=== PATIENT | female | born 1930 | race Caucasian/White ===

== ENCOUNTER → 2019-10-04 10:35 | Outpatient (CLI) | payer MEDICARE | END | disposition home or self-care (01) | LOC: D.RAD 10:00 | PROVIDERS: ATTEND Internal Medicine Gastroenterology | DX: R14.2 Eructation (principal) ==

== ENCOUNTER 2019-10-09 11:28 | Inpatient (IN) | payer MEDICARE ==
[~2019-10-09] VITALS: Ht 147.3 cm; Wt 53.6 kg
[2019-10-09] VITALS (9 sets, daily range): BP systolic 90–138; BP diastolic 44–69; BMI 25.9; BMI 26.3
[2019-10-09 12:15] LABS: ANION GAP 9.9 mmol/L (8-16); CALCIUM 8.9 mg/dL (8.5-10.1); CARBON DIOXIDE 28.9 mmol/L (21.0-32.0); POTASSIUM - SERUM 3.8 mmol/L (3.5-5.1)
[2019-10-09] MEDS ORDERED: CARAFATE1 G PO (12:19)
[2019-10-09] MEDS ORDERED: CIMETIDINE200 MG PO (12:19)
[2019-10-09] MEDS ORDERED: OMEPRAZOLE20 M1 (12:19)
[2019-10-09] MEDS ORDERED: COZAAR25 MG PO (12:20)
[2019-10-09 12:25] LABS: HEMATOCRIT 29.1 % (36.0-48.0); HEMOGLOBIN 9.9 g/dL (12-16); LYMPHOCYTES 23.4 % (15-50); MCH 27.6 pg (26.0-34.0); MCV 81.1 fL (80.0-100.0); MEAN PLATELET VOLUME 8.9 fL (7.4-10.4); PLATELET COUNT 359 10x3/uL (130-400); RBC 3.59 10x6/uL (4.00-5.40); RDW 12.8 % (11.5-14.5); WBC 7.3 10x3/uL (4.8-10.8)
--- NOTE | 2019-10-09 19:00 | NUR ---
REPORT RECEIEVED. PT SEDATED ON VENT, NO ACUTE DISTRESS NOTED. ASSESSMENT COMPLETED, SEE FLOWSHEET. RT HAND PIV INFUSING, SEE IV FLOWSHEET. WILL CONTINUE TO MONITOR.
--- NOTE | 2019-10-09 19:00 | NUR ---
1700 PT RECIEVED FROM GI LAB WITH ANESTHESIA AND GI LAB STAFF.. PT IS ORALLY INTUBATED AND SEDATED WITH DIPRIVAN.. SHE IS PLACED ON VENT ON ARRIVAL.. NGT PLACED ON ARRIVAL AND IMMIDIATE RETURN OF COPIOUS AMOUNTS OF STOMACH CONTENTS RETURNED WHEN PLACED TO SUCTION.. PIV INTO HER RIGHT HAND AND NS INFUSING WITH DIPRIVAN.. PT IS VERY EASILY STIMULATED.. 1800 MORE CALM AT THIS TIME REMAINS ON VENT ABGS DONE WITH VENT CHANGES MADE BY RT
[2019-10-10] VITALS (23 sets, daily range): BP systolic 90–128; BP diastolic 40–78; Ht 147.3 cm; Wt 53.6 kg
[2019-10-10 04:01] LABS: BASOPHILS 0.2 % (0-2); EOSINOPHILS 0.2 % (0-7); HEMATOCRIT 28.3 % (36.0-48.0); HEMOGLOBIN 9.5 g/dL (12-16); IMMATURE GRANULOCYTES 0.3 % (0-5); LYMPHOCYTES 11.4 % (15-50); MCH 27.8 pg (26.0-34.0); MCHC 33.6 g/dL (31.0-37.0); MCV 82.7 fL (80.0-100.0); MEAN PLATELET VOLUME 9.8 fL (7.4-10.4); MONOCYTES 8.1 % (2-11); NEUTROPHILS 79.8 % (40-80); RBC 3.42 10x6/uL (4.00-5.40); RDW 12.8 % (11.5-14.5)
[2019-10-10 04:22] LABS: PLATELET COUNT 271 10x3/uL (130-400); WBC 12.9 10x3/uL (4.8-10.8)
[2019-10-10 04:33] LABS: ALBUMIN 3.3 g/dL (3.4-5.0); ANION GAP 8.9 mmol/L (8-16); BILIRUBIN - TOTAL 0.3 mg/dL (0.2-1.3); CALCIUM 8.1 mg/dL (8.5-10.1); CARBON DIOXIDE 26.3 mmol/L (21.0-32.0); MAGNESIUM - SERUM 1.5 mg/dL (1.8-2.4); PHOSPHOROUS 4.3 mg/dL (2.5-4.9); PROTEIN - SERUM 6.1 g/dL (6.4-8.2)
[2019-10-10 04:41] LABS: POTASSIUM - SERUM 3.2 mmol/L (3.5-5.1)
[2019-10-10 04:51] LABS: % SATURATION 7 % (15-55); IRON 22 ug/dl (35-150); TOTAL IRON BIND CAPACITY 288 ug/dl (260-445); UNSAT IRON BIND CAPACITY 266 ug/dl (150-375)
--- NOTE | 2019-10-10 07:16 | NUR ---
2100 - PT SEDATED ON VENT. 2300 - REASSESSMENT COMPLETED, SEE FLOWSHEET. 0100 - REPOSITIONED FOR COMFORT. 0300 - REASSESSMENT COMPLETED. 0500 - PT REPOSITIONED FOR COMFORT. WILL CONTINUE TO MONITOR.
--- NOTE | 2019-10-10 07:20 | NUR ---
REPORT RECIEVED, SHIFT ASSESSMENT COMPLETE, PT IS SEDATED ON VENT, ON 30% FIO2 WITH 98% O2 SAT. ALL PPP, VSS, WILL CON'T TO MONITOR
--- NOTE | 2019-10-10 09:30 | NUR ---
PT TO CT AT THIS TIME, VIA BED, FAMILY AT BEDSIDE,
--- NOTE | 2019-10-10 11:30 | NUR ---
REASSESSMENT COMPLETE, NO CHANGES NOTED, PT RESTING AT THIS TIME, VSS, CALL LIGHT IN REACH
--- NOTE | 2019-10-10 13:15 | NUR ---
FAMILY AT BEDSIDE, UPDATE GIVEN
--- NOTE | 2019-10-10 14:30 | NUR ---
DR. CONCEPCION MET WITH FAMILY AT THIS TIME, SPOKE AT LENGTH ABOUT PT POC, ALL QUESTIONS ANSWERED, NO OTHER NEEDS NOTED
--- NOTE | 2019-10-10 15:20 | NUR ---
REASSESSMENT COMPLETE, NO CHANGES NOTED, PT RESTING AT THIS TIME, VSS, WILL CON'T TO MONITOR
[2019-10-11] VITALS (18 sets, daily range): BP systolic 104–146; BP diastolic 44–86
[2019-10-11 03:56] LABS: HEMATOCRIT 26.4 % (36.0-48.0); LYMPHOCYTES 14.6 % (15-50); MCHC 34.1 g/dL (31.0-37.0); MEAN PLATELET VOLUME 9.5 fL (7.4-10.4); NEUTROPHILS 76.9 % (40-80); PLATELET COUNT 301 10x3/uL (130-400); RBC 3.22 10x6/uL (4.00-5.40); RDW 13.4 % (11.5-14.5)
[2019-10-11 04:00] LABS: ANION GAP 10.1 mmol/L (8-16); CALCIUM 7.5 mg/dL (8.5-10.1); CARBON DIOXIDE 23.6 mmol/L (21.0-32.0); WBC 9.4 10x3/uL (4.8-10.8)
[2019-10-11 04:02] LABS: POTASSIUM - SERUM 3.7 mmol/L (3.5-5.1)
--- NOTE | 2019-10-11 09:03 | NUR ---
SEDATION OFF FOR CPAP TRIAL PER ORDER
--- NOTE | 2019-10-11 19:00 | NUR ---
ASSESSMENT COMPLETED. SEE FLOWSHEETS FOR ALL FINDINGS. PT A/O X3, FOLLOWS COMMANDS, ANSWERED QUESTIONS APPROP. SR ON CM WITH HR AT 79BPM, LUNGS CLEAR TO ULB, DIMINISHED TO LLB, UNLABORED ON 4L VIA NC. RT NARE NGT TO LIWS, IN PLACE, POSITIONED VERIFIED BY 10CC AIR BOLUS, [id number] H2O2, WITHOUT DIFFIC. ABD BOWEL SOUNDS HYPOACTIVE X4 QUADR. PPP. CALL LIGHT IN REACH. CONT TO MONITOR.
--- NOTE | 2019-10-11 21:00 | NUR ---
REPOSTIONED FOR COMFORT. PILLOWS IN USE FOR SUPPORT. VSS. NO VISITORS AT THIS TIME. CPOC.
--- NOTE | 2019-10-11 23:00 | NUR ---
REASSESSMENT COMPLETED. SEE FLOWSHEETS FOR ALL FINDINGS. NO SIGNS OF DISTRESS AT THIS TIME. VSS. CPOC.
[2019-10-12] VITALS (23 sets, daily range): BP systolic 101–157; BP diastolic 48–95
--- NOTE | 2019-10-12 01:00 | NUR ---
PT RESTING QUIETLY WITHOUT DISTRESS. VSS. NO NEEDS VOICES AT THIS TIME. CPOC.
--- NOTE | 2019-10-12 03:00 | NUR ---
REASSESSMENT COMPLETED. SEE FLOWSHEETS FOR ALL FINDINGS. NO ACUTE CHANGES NOTED. VSS. CPOC.
--- NOTE | 2019-10-12 04:24 | NUR ---
I&O COMPLETED TO CHART.
--- NOTE | 2019-10-12 05:00 | NUR ---
PT REPOSITIONED FOR COMFORT. PILLOWS IN USE FOR SUPPORT. HOB UP. SIDE RAILS UP. CALL LIGHT IN REACH. CPOC.
--- NOTE | 2019-10-12 07:00 | NUR ---
REC'D REPORT AND RESUMED CARE, SITTING UP IN BED AO, VSS, NGT TO RIGHT NARE, GREEN DRAINAGE TO CANISTER, PIV TO RIGHT FA WITH RAMÓN, NS INFUSING, FOELY TO GRAVITY WITH YELOOW DRAINAGE TO BAG, ASSESSMENT COMPLETED PER FLOWSHEET, CALL LIGHT IN REACH, NO NEEDS AT THIS TIME
--- NOTE | 2019-10-12 08:00 | NUR ---
FAMILY AT BEDSIDE, STATUS UPDATED, AWAITNG CONFERENCE WITH DR. CONCEPCION RE: POSSIBLE SURGERY, NO OTHER NEEDS AT THIS TIME
--- NOTE | 2019-10-12 09:00 | NUR ---
MORNING MEDS GIVEN PER MAR FLOWSHEET, TOLERATED WITH DIFFICULTY
--- NOTE | 2019-10-12 10:12 | NUR ---
Nutrition follow-up: Pt extubed 10/[address] NPO Labs reviewed WT: 126# Recommend ST eval and diet advanced as soon as mecically feasible. It unable to tolerate po intake, recommmend starting TF via NGT. Osmolite 1.0 leeanna @ goal rate of 50 ml/hr. RDN following.
--- NOTE | 2019-10-12 11:00 | NUR ---
ASSESSMENT COMPLETED, NO ACUTE CHANGE FROM PREVIOUS
--- NOTE | 2019-10-12 12:30 | NUR ---
FDR BREVING HERE FOR EVAL AND DISCUSSION WITH FAMILY RE: POSSIBLE SURGERY, ECISION MADE BY PATIENT TO GO WITH SURGERY AT THIS TIME
--- NOTE | 2019-10-12 15:00 | NUR ---
SLEEPING WITH NO SIGNS OF DISTRESS, VSS, WILL COPNTINUE TO MONITOR
--- NOTE | 2019-10-12 16:24 | HP ---
PATIENT: HONORIO ACEVES MEDICAL RECORD: [id number] ACCOUNT: [id number] LOCATION:[facility] D.2307 : 34 ADMISSION DATE: 10/09/19 PCP: KATERINA HO MD HISTORY AND PHYSICAL EXAMINATION CHIEF COMPLAINT: Clogged stent. HISTORY OF PRESENT ILLNESS: The patient has a duodenal stent in place. She has undergone upper GI and it appears that her stent is almost completely clogged duct. We are going to go in and see if we can unclog the stent. We have never been able to determine what is the etiology of the duodenal stenosis, whether it is due to peptic ulcer disease or due to a polyp, or whether it is due to malignancy. However, we will accept the fact that an operation on her to determine the reason for the duodenal stenosis is something we do not want to do because she likely would not do well with it. HOME MEDICATIONS: Please see the nursing list. ALLERGIES: SULFA AND PREDNISONE. PAST MEDICAL AND SURGICAL HISTORY: Hypertension, gastroesophageal reflux, history of duodenal stenosis. REVIEW OF SYSTEMS: Negative for angina or myocardial infarction, CVA or seizures. PHYSICAL EXAMINATION: GENERAL: The patient does not appear acutely ill. She does not appear chronically ill. VITAL SIGNS: Reviewed. EARS: The patient is very hard of hearing. CARDIOVASCULAR: Regular rhythm. PULMONARY: Nonlabored. EYES: Extraocular movements are intact. IMPRESSION: Clogged duodenal stent. PLAN: Plan will be EGD with an attempt to recanalize the duodenal stent. TRANSINT:[id number] Voice Confirmation ID: [id number] DOCUMENT ID: [id number] HANNAH CONCEPCION MD at 1624 CC: [id number] DICTATION DATE: 10/09/19 1600 SIEBEL ARCHITECT: 10/09/19 192 ADM IN [facility] [address] [place] [address]
--- NOTE | 2019-10-12 18:00 | NUR ---
PROCAL INITITATED AND INFUSING AT 50 CC/HR
--- NOTE | 2019-10-12 21:10 | NUR ---
NO VISITORS PRESENT AT THIS TIME, VSS, WILL MONITOR.
[2019-10-13] VITALS (24 sets, daily range): BP systolic 97–168; BP diastolic 51–99
--- NOTE | 2019-10-13 10:12 | NUR ---
PTS DAUGHTER AT BEDSIDE AT THIS TIME, UPDATES PROVIDED. VSS. NO ACUTE DISTRESS NOTED. WILL CONTINUE PLAN OF CARE.
--- NOTE | 2019-10-13 10:26 | NUR ---
DR MEHTA IN PTS ROOM SPEAKING WITH PT AND PTS DAUGHTER. VSS. NO ACUTE DISTRESS NOTED. WILL CONTINUE PLAN OF CARE.
--- NOTE | 2019-10-13 12:55 | NUR ---
UP IN BED AWAKE AT THIS TIME. VSS. NO ACUTE DISTRESS NOTED. PT INDEPENDENT IN BED, AND STATES SHE IS COMFORTABLE. WILL CONTINUE PLAN OF CARE.
--- NOTE | 2019-10-13 14:14 | NUR ---
NO CHANGE. VSS. NO ACUTE DISTRESS NOTED. WILL CONTINUE PLAN OF CARE.
[2019-10-13 16:14] LABS: BASOPHILS 0.5 % (0-2); EOSINOPHILS 1.9 % (0-7); HEMATOCRIT 27.7 % (36.0-48.0); IMMATURE GRANULOCYTES 0.3 % (0-5); LYMPHOCYTES 21.7 % (15-50); MCH 27.2 pg (26.0-34.0); MCHC 32.5 g/dL (31.0-37.0); MCV 83.7 fL (80.0-100.0); MEAN PLATELET VOLUME 8.9 fL (7.4-10.4); MONOCYTES 10.1 % (2-11); NEUTROPHILS 65.5 % (40-80); PLATELET COUNT 333 10x3/uL (130-400); RBC 3.31 10x6/uL (4.00-5.40); RDW 13.7 % (11.5-14.5)
[2019-10-13 16:21] LABS: ALBUMIN 2.8 g/dL (3.4-5.0); ANION GAP 10.4 mmol/L (8-16); BILIRUBIN - TOTAL 0.29 mg/dL (0.2-1.3); CALCIUM 8.6 mg/dL (8.5-10.1); CARBON DIOXIDE 24.8 mmol/L (21.0-32.0); CREATININE - SERUM 0.8 mg/dL (0.6-1.3); POTASSIUM - SERUM 3.2 mmol/L (3.5-5.1); PROTEIN - SERUM 6.3 g/dL (6.4-8.2)
--- NOTE | 2019-10-13 16:50 | NUR ---
POTASSIUM LEVEL IS 3.2, REPLACED PER PROTOCOL.
--- NOTE | 2019-10-13 18:36 | NUR ---
UP IN BED AWAKE AT THIS TIME. DEINES ANY NEEDS. VSS. WILL CONTINUE PLAN OF CARE.
--- NOTE | 2019-10-13 19:15 | NUR ---
RESUMED CARE OF PT, ASSISTED PT TO REPOSITION IN BED, VSS, BED LOW, CALL LIGHT AND PERSONAL ITEMS IN REACH.
--- NOTE | 2019-10-13 21:30 | NUR ---
NO VISITORS PRESENT AT THIS TIME, PT REFUSES CHG BATH AT THIS TIME, STATES SHE WOULD PREFER TO WAIT FOR TOMORROW FOR SURGERY.
--- NOTE | 2019-10-13 23:15 | NUR ---
REASSESSMENT PER FLOWSHEET, NO ACUTE CHANGES NOTED. VSS
[2019-10-14] VITALS (24 sets, daily range): BP systolic 107–155; BP diastolic 47–87
--- NOTE | 2019-10-14 03:15 | NUR ---
REASSESSMENT PER FLOWSHEET, HR SR ON CM, CONT POC.
[2019-10-14 04:00] LABS: BASOPHILS 0.5 % (0-2); EOSINOPHILS 2.3 % (0-7); HEMATOCRIT 26.9 % (36.0-48.0); HEMOGLOBIN 8.6 g/dL (12-16); IMMATURE GRANULOCYTES 0.3 % (0-5); LYMPHOCYTES 20.9 % (15-50); MCH 26.6 pg (26.0-34.0); MCV 83.3 fL (80.0-100.0); MEAN PLATELET VOLUME 8.8 fL (7.4-10.4); PLATELET COUNT 322 10x3/uL (130-400); RBC 3.23 10x6/uL (4.00-5.40); RDW 13.5 % (11.5-14.5)
[2019-10-14 04:06] LABS: CALC OSMOLALITY 271 mosm/kg (275-300); CALCIUM 8.5 mg/dL (8.5-10.1); CARBON DIOXIDE 24.8 mmol/L (21.0-32.0); CHLORIDE - SERUM 103 mmol/L (98-107); CREATININE - SERUM 0.7 mg/dL (0.6-1.3); GLUCOSE 112 mg/dL (74-106); MAGNESIUM - SERUM 1.6 mg/dL (1.8-2.4); PHOSPHOROUS 2.5 mg/dL (2.5-4.9); SODIUM 135 mmol/L (136-145); UREA NITROGEN 14 mg/dL (7-18); eGFR NON AFRICAN AMERICAN 84 mL/min (90-120)
--- NOTE | 2019-10-14 05:47 | NUR ---
PT RESTING IN BED WITH EYES CLOSED, VSS, CONT POC.
--- NOTE | 2019-10-14 08:53 | NUR ---
UP IN BED AT THIS TIME AWAKE AND TALKING TO DR MEHTA. VSS. NO ACUTE DISTRESS NOTED. CALL LIGHT IN REACH. ALERT AND ORIENTED. ASSISTED WITH REPOSITIONING Q2H WELL PT REPOSITIONS SELF FREQUENTLY. WILL CONTINUE PLAN OF CARE.
--- NOTE | 2019-10-14 12:26 | NUR ---
1120: NOTED PTS NGT TAPE HAD COME LOOSE AND WAS NO LONGER ADHERED TO PTS NGT. PLACEMENT AUSCULTATED TO VERIFY AND NEW SECURITY TAPE WAS PLACED. 1210: PTS DAUGHTER WAS IN ROOM VISING WITH PT AND NOTIFIED NURSE THAT SHE WAS NOW STARTING TO SEE SMALL AMOUNT OF BLOOD TINGED DRAINAGE IN NGT TUBING WHICH IS SET TO LOW INTERMITENT SUCTIONING. AT THIS TIME PLACEMENT ASSESSED VIA AUSCULTATION AND NOTED IT WAS NO LONGER IN PLACE. NGT ADVANCED 1 INCH AND THEN AUSCULTATION PERFORMED AGAIN AND WAS NOTED NOW IN PLACE. DR MEHTA PAGED AND NOTIFIED OF THIS. KUB ORDER RECIEVED FOR PLACEMENT VERIFICATION. TAPE IN PLACE FOR NGT SECURITY. VSS. WILL CONTINUE PLAN OF CARE.
--- NOTE | 2019-10-14 14:41 | NUR ---
UP IN BED TALKING ON PHONE AT THIS TIME. VSS. NO ACUTE DISTRESS NOTED. CALL LIGHT AND PERSONAL ITEMS IN REACH. WILL CONTINUE PLAN OF CARE.
--- NOTE | 2019-10-14 16:48 | NUR ---
AWAKE IN BED WATCHING TV AT THIS TIME. VSS. NO ACUTE DISTRESS NOTED. WILL CONTINUE PLAN OF CARE.
--- NOTE | 2019-10-14 17:49 | NUR ---
NO ACUTE DISTRESS NOTED. NO CHANGE. VSS. CALL LIGHT AND PERSONAL ITEMS IN REACH. WILL CONTINUE PLAN OF CARE.
--- NOTE | 2019-10-14 19:15 | NUR ---
RESUMED CARE OF PT, ASSESSMENT PER FLOWSHEET.
[2019-10-15] VITALS (24 sets, daily range): BP systolic 84–157; BP diastolic 52–93
--- NOTE | 2019-10-15 01:04 | NUR ---
PT RESTING IN BED WITH EYES CLOSED, HR SR ON CM, VSS.
[2019-10-15 04:26] LABS: BASOPHILS 0.5 % (0-2); EOSINOPHILS 3.2 % (0-7); HEMATOCRIT 29.9 % (36.0-48.0); HEMOGLOBIN 9.8 g/dL (12-16); IMMATURE GRANULOCYTES 0.2 % (0-5); LYMPHOCYTES 26.8 % (15-50); MCH 27.1 pg (26.0-34.0); MCHC 32.8 g/dL (31.0-37.0); MCV 82.8 fL (80.0-100.0); MEAN PLATELET VOLUME 8.7 fL (7.4-10.4); MONOCYTES 10.4 % (2-11); NEUTROPHILS 58.9 % (40-80); PLATELET COUNT 326 10x3/uL (130-400); RBC 3.61 10x6/uL (4.00-5.40); RDW 13.2 % (11.5-14.5); WBC 8.1 10x3/uL (4.8-10.8)
[2019-10-15 05:00] LABS: ALBUMIN 2.8 g/dL (3.4-5.0); ANION GAP 12.4 mmol/L (8-16); BILIRUBIN - TOTAL 0.34 mg/dL (0.2-1.3); CARBON DIOXIDE 26.4 mmol/L (21.0-32.0); CREATININE - SERUM 0.8 mg/dL (0.6-1.3); MAGNESIUM - SERUM 1.8 mg/dL (1.8-2.4); POTASSIUM - SERUM 3.8 mmol/L (3.5-5.1); PROTEIN - SERUM 6.7 g/dL (6.4-8.2)
--- NOTE | 2019-10-15 05:43 | NUR ---
PT RESTING IN BED WITH EYES CLOSED, VSS, CONT TO MONITOR.
--- NOTE | 2019-10-15 07:00 | NUR ---
REC'D REPORT AND RESUMED CARE, AA, CONFUSED RE: TIME, [place], HEARING AIDES OUT BECAUSE OF PENDING SURGERY, O2 VIA RA, RIGHT NARE NGT WIO LIWS, WITH GREEN DRAINAGE, PIV TO RT FA AND RIGHT HAND INFUSING PROCAL AT 50 AND NS AT 25, MADRIGAL TO GRAVITY WITH CLEAR YELLOW DRAINAGE TO BAG, SCD'S B/L, ASSESSMENT COMPLETED PER FLOWSHEET, CALL LIGHT IN REACH, AWAITING SURGERY, NO OTHER NEEDS AT THIS TIME 0715 CHG BATH GIVEN FOR PENDING SURGERY, TOLERATED WITHOUT DIFFICULTY
--- NOTE | 2019-10-15 09:00 | NUR ---
MORNING MEDS GIVEN, HELD LOVENOX FOR PENDING SURGERY
--- NOTE | 2019-10-15 10:10 | NUR ---
PREOPED FRO PENDING SURGERY
--- NOTE | 2019-10-15 10:23 | NUR ---
Nutrition follow-up: NPO G/J tube placed today Pt with bezoar NGT->LIWS ProvalAmine PPN @ 50 ml/hr Labs reviewed RDN following.
--- NOTE | 2019-10-15 11:00 | NUR ---
PC FROM DR CONCEPCION, WILL NOT DO SURGERY TODAY, WILL PUT ON 10/15 SURGERY SCHEDULE, NOTIFIED DAUGHTER HAYLEY, AND PATIENT, ASKING IF DR MEHTA WOULD BE ABLE TO PERFORM SURGERY IF CARLENE NOT AVAILABLE TOMMORROW, I LET HAYLEY KNOW THAT I WOULD HAVE TO GET BACK WITH HER TO LET HER KNOW, NO OTHER ACUTE CHANGE FROM PREVIOUS
--- NOTE | 2019-10-15 12:30 | NUR ---
SON AT BEDSIDE, STATUS UPDATE, HE STATED THAT THE FAMILY HAS SPOKEN WITH DR MEHTA AND HE WILL PERFORM SURG ON 10/15
--- NOTE | 2019-10-15 16:30 | NUR ---
OOB TO CHAIR, TOLERATED TRANSFER WITHOUT DIFFICULTY, UP IN CHAIR STARTED TO FEEL LIGHTHEADED, LETHARGIC, AND PASSED OUT, COOL TOWELS TO FACE, ABLE TO SBP 74, BACK TO BED WTIH ASSIST, RECHECK OF SBP 117, AWAKE AND ALERT.
--- NOTE | 2019-10-15 20:31 | MORECARE ---
CASE MANAGEMENT DISCHARGE SUMMARY PATIENT: HONORIO ACEVES UNIT: [id number] ADM DATE: 10/09/19 AGE: 89 : 32 SEX: F ROOM/BED: D.2307 AUTHOR: CELESTINA HUGGINS PHYSICIAN: REFERRING PHYSICIAN: HANNAH CONCEPCION MD DATE OF SERVICE: 10/15/19 Discharge Plan Patient Name: HONORIO ACEVES [facility] [facility] 1930 Planned Disposition: Home Anticipated Discharge Date: Discharge Date: Expected LOS: Initial Reviewer: [email or web address] Initial Review Date: 10/15/2019 Generated: 10/15/19 9:30 pm DCPIA - Discharge Planning Initial Assessment Updated by [email or web address]: Dasia Chacon on 10/15/19 8:27 pm * Is the patient Alert and Oriented? Yes * How many steps to enter\exit or inside your home? * PCP [place] * Pharmacy [facility] * Preadmission Environment Home Alone * ADLs Independent * Equipment Walker * List name and contact numbers for known caregivers / representatives who currently or will assist patient after discharge: HAYLEY CHAPMAN - DAUGHTER- [phone], * Verbal permission to speak to the caregivers and representatives has been obtained from the patient. Yes * Community resources currently utilized None * Additional services required to return to the preadmission environment? No * Can the patient safely return to the preadmission environment? Yes * Has this patient been hospitalized within the prior 30 days at any hospital? No Patient Name: HONORIO ACEVES Page [id number] at 2031 All edits/amendments must be made on the electronic document DICTATION DATE: 10/15/192029 IC DESIGN MANAGER: BEBETO 10/15/192029 RPT#: [id number] DC DATE: STATUS: ADM IN [facility] [address] [place] [address] END OF REPORT
--- NOTE | 2019-10-15 20:39 | MORECARE ---
CASE MANAGEMENT DISCHARGE SUMMARY PATIENT: HONORIO ACEVES UNIT: [id number] ADM DATE: 10/09/19 AGE: 89 : 32 SEX: F ROOM/BED: D.2307 AUTHOR: BHAVNA,DOC PHYSICIAN: REFERRING PHYSICIAN: HANNAH CONCEPCION MD DATE OF SERVICE: 10/15/19 Discharge Plan Patient Name: HONORIO ACEVES Facility: [facility]:[place] : 1930 Planned Disposition: Home Anticipated Discharge Date: Discharge Date: Expected LOS: Initial Reviewer: [email or web address] Initial Review Date: 10/15/2019 Generated: 10/15/19 9:39 pm Comments DCP- Discharge Planning Updated by [email or web address]: Dasia Chacon on 10/15/19 7:[address] Patient Name: HONORIO ACEVES Admission Status: Elective Accout number: [id number] Admission Date: 10-09-2019 : 1930 Admission Diagnosis:ACUTE POSTPROCEDURAL RESPIRATORY FAILURE Attending: HANNAH CONCEPCION Current LOS: 6 Anticipated DC Date: Planned Disposition: Home Primary Insurance: [facility] [employer] SOLUTIONS Discharge Planning Comments: CM met with patient to complete initial dc planning assessment. CM educated patient on the CM role and verbal consent given by patient to complete assessment. Patient lives at home alone. Patient is independent. At discharge patient plans to return home and feels this is a safe discharge. CM discussed availability of home health, rehab services, and medical equipment. Patient was pretty adamant that she didn't need any HH services. Patient will have family to transport home. CM will need to see what physical therapy recommends once she is evaluated. Patient denied known discharge needs at this time. CM will continue to follow and will assist as needed with dc plans/needs. Auger Supervisor: Dasia Chacon DCPIA - Discharge Planning Initial Assessment Updated by [email or web address]: Dasia Chacon on 10/15/19 8:27 pm * Is the patient Alert and Oriented? Yes * How many steps to enter\exit or inside your home? * PCP [place] * Pharmacy [facility] * Preadmission Environment Home Alone * ADLs Independent * Equipment Walker * List name and contact numbers for known caregivers / representatives who currently or will assist patient after discharge: HAYLEY CHAPMAN - DAUGHTER- [phone], * Verbal permission to speak to the caregivers and representatives has been obtained from the patient. Yes * Community resources currently utilized None * Additional services required to return to the preadmission environment? No * Can the patient safely return to the preadmission environment? Yes * Has this patient been hospitalized within the prior 30 days at any hospital? No Last DP export: 10/15/19 7:31 p Patient Name: HONORIO ACEVES Page [phone] at 2038 All edits/amendments must be made on the electronic document DICTATION DATE: 10/15/192038 PLUMBING INSTRUCTOR: BEBETO 10/15/192038 RPT#: [id number] DC DATE: STATUS: ADM IN [facility] [address] [place] [address] END OF REPORT
--- NOTE | 2019-10-15 20:46 | MORECARE ---
CASE MANAGEMENT DISCHARGE SUMMARY PATIENT: HONORIO ACEVES UNIT: [id number] ADM DATE: 10/09/19 AGE: 89 : 32 SEX: F ROOM/BED: D.2307 AUTHOR: BHAVNA,DOC PHYSICIAN: REFERRING PHYSICIAN: HANNAH CONCEPCION MD DATE OF SERVICE: 10/15/19 Discharge Plan Patient Name: HONORIO ACEVES Facility: [facility]:[place] : 1930 Planned Disposition: Home Anticipated Discharge Date: Discharge Date: Expected LOS: Initial Reviewer: [email or web address] Initial Review Date: 10/15/2019 Generated: 10/15/19 9:45 pm Comments DCP- Discharge Planning Updated by [email or web address]: Dasia Chacon on 10/15/19 7:[address] Patient Name: HONORIO ACEVES Admission Status: Elective Accout number: [id number] Admission Date: 10-09-2019 : 1930 Admission Diagnosis:ACUTE POSTPROCEDURAL RESPIRATORY FAILURE Attending: HANNAH CONCEPCION Current LOS: 6 Anticipated DC Date: Planned Disposition: Home Primary Insurance: [facility] MEDICARE SOLUTIONS Discharge Planning Comments: CM met with patient to complete initial dc planning assessment. CM educated patient on the CM role and verbal consent given by patient to complete assessment. Patient lives at home alone. Patient is independent. At discharge patient plans to return home and feels this is a safe discharge. CM discussed availability of home health, rehab services, and medical equipment. Patient was pretty adamant that she didn't need any HH services. Patient will have family to transport home. CM will need to see what physical therapy recommends once she is evaluated. Patient might be interested in Inpatient Rehab. CM will need to get MARY for infusion company for tube feedings. Patient denied known discharge needs at this time. CM will continue to follow and will assist as needed with dc plans/needs. Emergency Response Technician: Dasia Chacon DCPIA - Discharge Planning Initial Assessment Updated by [email or web address]: Dasia Chacon on 10/15/19 8:27 pm * Is the patient Alert and Oriented? Yes * How many steps to enter\exit or inside your home? * PCP [place] * Pharmacy [facility] * Preadmission Environment Home Alone * ADLs Independent * Equipment Walker * List name and contact numbers for known caregivers / representatives who currently or will assist patient after discharge: HAYLEY CHAPMAN - DAUGHTER- [phone], * Verbal permission to speak to the caregivers and representatives has been obtained from the patient. Yes * Community resources currently utilized None * Additional services required to return to the preadmission environment? No * Can the patient safely return to the preadmission environment? Yes * Has this patient been hospitalized within the prior 30 days at any hospital? No Last DP export: 10/15/19 7:39 p Patient Name: HONORIO ACEVES Page [id number] at 204 All edits/amendments must be made on the electronic document DICTATION DATE: 10/15/192045 ORCHARDIST: BEBETO 10/15/192045 RPT#: [id number] DC DATE: STATUS: ADM IN [facility] [address] [place] [address] END OF REPORT
[2019-10-16] VITALS (21 sets, daily range): BP systolic 79–139; BP diastolic 44–67
--- NOTE | 2019-10-16 07:00 | NUR ---
REC'D REPORT AND RESUMED CARE, AAO, VSS, DENIES PAIN AT THIS TIME, NGT TO LIWS WITH GREEN DRAINAGE, RIGHT UPPER ARM PIV WITH PROCAL AND NS INFUSING, MADRIGAL WO GRAIVTY WITH CLEAR YELLOW DRAINAGE TO GRAVITY, SCD'S B/L, BATH AND LINEN CHANGE COMPLETED, PRE OP MEDS GIVEN PER MAR FLOWSHEET, ASSESSMENT COMPLETED FLOWSHEET, CALL LIGHT IN REACH, NO NEEDS AT THIS TIME
--- NOTE | 2019-10-16 08:32 | NUR ---
SUPERVISOR HOT DIP PLATING HERE TO PRAY BEFORE SURGERY, SURGERY TEAM HERE FOR PATIENT, TO SURGERY VIA BED, AND PERSONNEL X2, AAO, VSS, PHONE CALL TO DAUGHTER HAYLEY
--- NOTE | 2019-10-16 11:08 | NUR ---
BACK FROM SURGERY, SLEEPING, AOUSED TO TACTILE STIMULI, CONNECTED TO ICU MONITOR, VSS, CALL LIGHT IN REACH, PHONE CALL TO DAUGHTER HAYLEY, STATUS UPDATED, WILL AWAIT FOR PATIENT TO WAKE UP MORE BEFORE VISIT
--- NOTE | 2019-10-16 13:42 | NUR ---
AROUSED TO VERBAL STIMULI, VSS, SHE COULD FEEL PAIN IN HER STOMACH, WANTED TO KNOW IF SURGERY WAS OVER, AND THEN DRIFTS BACK TO SLEEP, WILL CONTINUE TO MONITOR
--- NOTE | 2019-10-16 13:55 | NUR ---
PC FROM DR CONCEPCION NEW ORDER FOR MORPHINE 2MG Q 1 PAIN, AND PATIENT MAY HAVE ICE CHIPS
--- NOTE | 2019-10-16 15:00 | NUR ---
SLEEPING WITH NO SIGNS OF DISTRESS, VSS, CALL LIGHT IN REACH, NO NEEDS AT THIS TIME, ASSESSMENT COMPLETED PER FLOWSHEET
[2019-10-17] VITALS (17 sets, daily range): BP systolic 85–182; BP diastolic 45–79
--- NOTE | 2019-10-17 07:00 | NUR ---
REC'D REPORT AND RESUMED CARE, SLEEPING WITH NO SIGN OF DISTRESS, VSS, ASSESSMENT COMPLETE PER FLOWSHEET
--- NOTE | 2019-10-17 09:47 | NUR ---
C/O NAUSEA, ZOFRAN 4MG IVP GIVEN PER PRN ORDER
--- NOTE | 2019-10-17 11:04 | NUR ---
Nutrition follow-up: Pt s/p G/J tube placement and Whipple 10/15 NPO with ice chips ProcalAmine PPN @ 50 ml/hr Labs reviewed Wt: 118# Will wait for TF consult from surgeon. RDN following.
--- NOTE | 2019-10-17 15:00 | NUR ---
SLEEPING WITH NO SIGN OF DISTRESS, VSS, NO ACUTE CHANGE FROM PREVIOUS ASSESSMENT
--- NOTE | 2019-10-17 16:11 | NUR ---
REPORT CALLED TO JOSE ALBERTO ON MED/SURG, PC TO DAUGHTER HAYLEY, NOTIFIED OF PATIENT MOVING OUT OF ICU TO ROOM 6815.
--- NOTE | 2019-10-17 16:25 | NUR ---
TRANSFERRED TO 223 VIA BED, AAO, PRIMARY NURSE JOSE ALBERTO AT BEDSIDE, AND SON ARRIVE DURING SET UP, CALL LIGHT IN REACH, NO OTHER NEEDS AT THIS TIME
[2019-10-18] VITALS: BP 165/62
--- NOTE | 2019-10-18 03:24 | NUR ---
RESTING QUIETLY WITH EYES CLOSED. RESP NONLABORED. HAS VOMITED SEVERAL TIMES TONIGHT AND HAS BEEN MEDICATED WITH ZOFRAN. DRSG TO ABD IS C/D/I. SCDS IN USE BILAT. PROCAL @ 50 MLHR AND NS @ 25 ML/HR INFUSING IN LT FOREARM. SALINE LOCK TO RT UPPER ARM. ALERT AND ORIENTED. CONFUSED TO TIME. MADRIGAL CATH PATENT AND DRAINING DARK CLEAR YELLOW URINE. BED ALARM IN USE FOR PT SAFETY. SR ELEVATED X2. CL IN REACH.
[2019-10-18 04:00] VITALS: BP 119/56
[2019-10-18 04:16] LABS: BASOPHILS 0.1 % (0-2); EOSINOPHILS 0.2 % (0-7); HEMATOCRIT 30.9 % (36.0-48.0); HEMOGLOBIN 10.2 g/dL (12-16); IMMATURE GRANULOCYTES 0.4 % (0-5); LYMPHOCYTES 13.5 % (15-50); MCH 27.2 pg (26.0-34.0); MCV 82.4 fL (80.0-100.0); MONOCYTES 8.2 % (2-11); NEUTROPHILS 77.6 % (40-80); PLATELET COUNT 362 10x3/uL (130-400); RBC 3.75 10x6/uL (4.00-5.40); RDW 13.2 % (11.5-14.5)
[2019-10-18 04:33] LABS: ALBUMIN 2.7 g/dL (3.4-5.0); ANION GAP 11.1 mmol/L (8-16); BILIRUBIN - TOTAL 0.54 mg/dL (0.2-1.3); CALCIUM 9.3 mg/dL (8.5-10.1); CREATININE - SERUM 0.9 mg/dL (0.6-1.3); MAGNESIUM - SERUM 1.6 mg/dL (1.8-2.4); PHOSPHOROUS 2.9 mg/dL (2.5-4.9); POTASSIUM - SERUM 4.1 mmol/L (3.5-5.1); PROTEIN - SERUM 6.8 g/dL (6.4-8.2)
[2019-10-18 08:00] VITALS: BP 130/30
[2019-10-18 12:01] VITALS: BP 124/71
--- NOTE | 2019-10-18 14:50 | NUR ---
IV SITED TO RIGHT HAND 22G X 1 STICK. GOOD BLOOD RETURN, EASILY FLUSHED. PT ELOY WELL
--- NOTE | 2019-10-18 16:30 | OP ---
PATIENT NAME: HONORIO ACEVES MEDICAL RECORD: [id number] :34 LOCATION:D.MS [id number] ADMISSION DATE:10/09/19 SURGEON: UDAY CONCEPCION MD DATE OF OPERATION: 10/09/2019 PREOPERATIVE DIAGNOSIS: Obstructed duodenal stent. 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 PROCEDURE: 1. Esophagogastroduodenoscopy. 2. Snare biopsy of the duodenal mass, which was projecting into the stomach through the pylorus. 3. Attempted endoscopic removal of the duodenal stent. SURGEON: Uday Concepcion MD NURSING HOME ASSISTANT: None. BLOOD LOSS: Minimal. ENDOSCOPIC COURSE: The patient was conveyed to endoscopy suite electively on 10/09/2019. IV sedation was induced by the anesthesia staff. A bite block was inserted. A gastroscope was inserted into the mouth. It was advanced easily into the hypopharynx. The stomach was easily intubated. It was very dilated. There was a bezoar present. I aspirated as much of the liquid portion of the bezoar as I could. I then withdrew the endoscope. I instructed the nurse product development intern to perform endotracheal intubation in order to protect the patient's airway. This was carter as later in the proceduret the patient did vomit and I believe that the endotracheal tube prevented the patient from aspirating. I reintubated the patient's esophagus and stomach. The duodenal stent was noted. I tried to intubate the stent. I was able to do so with difficulty; however, I could not traverse the stent. It appeared that there was a mass that had invaded the interstices of the stent. It appeared that the stomach had either projected retrograde around the stent or that some of duodenal mass was projecting out through the stent. I advanced an endoscopic snare. Utilizing the coagulation setting, I snared off a portion of this mass. This may represent duodenum or could represent stomach or a little of both. Anyhow, this was grasped with an endoscopic retrieval net and was withdrawn out through the mouth. I then reintubated the patient's esophagus and stomach. I wanted to try to remove the stent. I think that a blind dilation utilizing it through the catheter balloon would have been unwise as I could not see the other end of the duodenal stent. So I grasped the duodenal stent with a pair of large endoscopic graspers. I attempted several times to remove the duodenal stent. This was not successful. It did cause some of the stent to fracture into the stomach. At this time, I did not think there was any additional maneuvers that I could perform. The patient was then conveyed from the GI suite while still endotracheally intubated and will be going to the ICU on mechanical ventilation. The endotracheal intubation will remain in order to protect the patient's airway. TRANSINT:[id number] Voice Confirmation ID: [id number] DOCUMENT ID: [id number] OPERATIVE REPORT [id number] HONORIO ACEVES, UDAY ERIC at 1630 CC: [id number] DICTATION DATE: 10/12/19 1629 RATE AND COST ANALYST: 10/13/19 0215 ADM IN [facility] [address] [id number]
--- NOTE | 2019-10-18 16:31 | OP ---
PATIENT NAME: HONORIO ACEVES MEDICAL RECORD: [id number] :32 LOCATION:D.MS [id number] ADMISSION DATE:10/09/19 SURGEON: HANNAH CONCEPCION MD DATE OF OPERATION: 10/16/2019 PREOPERATIVE DIAGNOSES: 1. Gastric outlet obstruction. 2. Inability to remove a duodenal stent, which is occluded. POSTOPERATIVE DIAGNOSES: 1. Gastric outlet obstruction. 2. Inability to remove a duodenal stent, which is occluded. 3. Duodenal mass, which I could not biopsy, but was quite firm and was larger than a plum, but not quite the size of an orange. PROCEDURE: Open gastrojejunostomy. SURGEON: Hannah Concepcion MD SHEETING PULLER: None. BLOOD LOSS: Trivial. COMPLICATIONS: None. The risks, possible complications and alternatives to the procedure were explained to the patient. She elects to proceed. The discussion specifically included, but was not limited to, bleeding requiring emergency reoperation, infection, intestinal injury and an anastomotic leakage. OPERATIVE COURSE: The patient was conveyed to the operating room electively on 10/16/2019. General anesthesia was induced by the anesthesia staff. The abdomen was sterilely prepped and draped. A transverse incision was accomplished in the left upper quadrant. Sharp dissection was carried down through the skin and subcutaneous tissue. The anterior fascia was sharply cleaned of overlying connective tissue. An incision was accomplished in the anterior fascia and identified that I was over the rectus muscle. I the rectus muscle without cutting. Stay sutures were placed into the posterior fascia. I then incised the posterior fascia. An Qasim retractor was placed. I examined the abdomen. I identified no carcinomatosis. No ascites. I identified the ligament of Treitz. I identified the junction of the fundus and antrum of the stomach. This was going to be antecolic anastomosis. I brought the proximal jejunum and the stomach into apposition side by side. It was kept in place with some 3-0 Vicryl sutures. A small gastrotomy and small enterotomy were accomplished. I advanced anvils of the TENZIN-75 stapler and then fired. The resulting gastroenteric defect was closed with a single firing of the TA-60 stapler. I reinforced some of the suture line with 3-0 Vicryl sutures. I then irrigated the staple line with hydrogen peroxide. The posterior fascia was closed with a running #1 Vicryl. The rectus muscles were approximated with interrupted #1 Vicryls. The anterior fascia was approximated with a running #1 Vicryl. The deep adipose tissue was closed with interrupted 3-0 Vicryls. The subcutaneous adipose tissue was closed with OPERATIVE REPORT [id number] HONORIO ACEVES interrupted 3-0 Vicryls. The skin was approximated with a running intracuticular 3-0 Vicryl. Marcaine was then injected into the subcutaneous tissue for postoperative analgesia. The patient was then extubated and conveyed to post-anesthesia care unit where she was in stable condition. It should be noticed that the patient had incarcerated umbilical hernia, which I did not attempt to repair. It contains only omentum. It is asymptomatic. TRANSINT:[id number] Voice Confirmation ID: [id number] DOCUMENT ID: [id number] HANNAH CONCEPCION MD at 1631 CC: CANDIDO LIN MD and KATERINA HO [id number] DICTATION DATE: 10/16/19 1036 HARNESSMAKER APPRENTICE: 10/16/19 1718 ADM IN [facility] [address] [place] [address]
[2019-10-18 17:03] VITALS: BP 156/75
[2019-10-18 20:00] VITALS: BP 141/53
--- NOTE | 2019-10-18 20:35 | NUR ---
LYING IN BED TALKING TO FAMILY. DENIES PAIN. NO NAUSEA AT THIS TIME. ZOFRAN DRIP INFUSING IN LT FOREARM WITH PROCAL @ 50 ML/HR. SCDS ON. ABD DRSG IS INTACT. DENIES PAIN. MADRIGAL CATH PATENT AND DRAINING DARK YELLOW URINE. BED ALARM IN USE FOR PT SAFETY. ALERT AND ORIENTED. CONFUSED AT TIMES. SR ELEVATED X2. CL IN REACH.
[2019-10-19 03:00] VITALS: BP 150/74
[2019-10-19 04:00] VITALS: BP 132/59
--- NOTE | 2019-10-19 04:02 | NUR ---
HAS RESTED WELL TONIGHT. NO VOMITING SO FAR THIS SHIFT. CL IN REACH.
[2019-10-19 05:08] LABS: BASOPHILS 0.1 % (0-2); HEMATOCRIT 26.9 % (36.0-48.0); HEMOGLOBIN 8.7 g/dL (12-16); IMMATURE GRANULOCYTES 0.4 % (0-5); LYMPHOCYTES 15.6 % (15-50); MCH 26.4 pg (26.0-34.0); MCHC 32.3 g/dL (31.0-37.0); MCV 81.8 fL (80.0-100.0); MEAN PLATELET VOLUME 9.1 fL (7.4-10.4); MONOCYTES 10.4 % (2-11); NEUTROPHILS 72.5 % (40-80); PLATELET COUNT 307 10x3/uL (130-400); RBC 3.29 10x6/uL (4.00-5.40); RDW 12.8 % (11.5-14.5); WBC 8.2 10x3/uL (4.8-10.8)
[2019-10-19 05:37] LABS: ANION GAP 9.4 mmol/L (8-16); CALCIUM 8.5 mg/dL (8.5-10.1); CARBON DIOXIDE 28.8 mmol/L (21.0-32.0); POTASSIUM - SERUM 4.2 mmol/L (3.5-5.1)
[2019-10-19 08:00] VITALS: BP 115/55
--- NOTE | 2019-10-19 08:20 | NUR ---
PT RESTING QUIETLY IN BED. PT MORE ALERT AND TALKATIVE TODAY, DENIES NAUSEA OR VOMITING. PT REPORTS NO VOMITING SINCE 1829 LAST EVENING. DENIES PAIN AT THIS TIME. SHE CONTINUES TO VOICE POOR APPETITE AT THIS TIME SHE STATES "THINGS JUST TASTE TOO SWEET". IV TO LEFT FOREARM WITH PROCALAMINE @ 50ML/HR, ZOFRAN @ 4.7ML/HR, BOTH INFUSING VIA PUMP. SITE WITHOUT REDNESS OR EDEMA. SALINE LOC TO LEFT HAND. SITE WITHOUT REDNESS OR EDEMA. DRESSING TO LEFT ABDOMINAL QUAD. F/C PATENT TO GRAVITY. SCD'S IN PLACE, ENCOURAGED USE OF INCENTIVE SPIROMETRY. FAMILY AT BEDSIDE. DENIES FURTHER NEEDS AT THIS TIME. CL WITHIN REACH. ENCOURAGED TO CALL WITH NEEDS. CONTINUE POC
--- NOTE | 2019-10-19 19:30 | NUR ---
BEDSIDE ROUNDS MADE WITH DAY SHIFT NURSE. INTRODUCED MYSELF TO PT. AND HER DAUGHTER. EXPLAINED THAT I WOULD BE BACK IN A LITTLE WHILE TO DO FULL ASSESSMENT AND GIVE MEDS IF SHE HAD ANY.
[2019-10-19 20:00] VITALS: BP 143/93
--- NOTE | 2019-10-19 20:30 | NUR ---
ASSESSMENT COMPLETED. HEART SOUNDS REGULAR, LUNGS SOUND CLEAR AND BOWEL SOUND NOT HEARD. PT AND HER DAUGHTER STATE THAT SHE HAS BEEN ON CLEAR LIQUIDS FOR SEVERAL DAYS. SHE DOES HAS PROCALAMINE RUNNING AT 75 ML/HR IN HER IV IN THE RIGHT HAND. PT HAS ZOFRAN SET UP FOR NAUSEA. SHE HAS NO NAUSEA AT THIS TIME. HER SKIN IS WARM AND DRY. SHE IS AWAKE AND ALERT WATCHING TV. SHE HAS NO LE EDEMA AT THIS TIME. SHE IS WEARING SCD'S. A MADRIGAL CATHETER IS IN PLACE DRAININIG MED DARK YELLOW URINE. CATH CARE DONE WITH SOAP AND WATER. NO KINKS NOTED IN MADRIGAL TUBING.
--- NOTE | 2019-10-19 21:45 | NUR ---
PT ASKED TO GET HER STRAIGHT IN BED SO SHE CAN GO TO SLEEP. JULIAN FAGAN AND I WENT TO HER ROOM AND GOT HER BEDING STRAIGHT AND COMFORTABLE FOR HER. SHE DECIDED HOW HIGH SHE WANTED THE HOB AFTER MANY TRIES. HER SCD'S ARE STILL ON AND MACHINE WORKING. ROHAN STILL WNL.
--- NOTE | 2019-10-19 22:30 | NUR ---
PT IS SLEEPING. SHE HAS NO NEEDS OR C/O AT THIS TIME.
[2019-10-20] VITALS: BP 143/69
--- NOTE | 2019-10-20 00:10 | NUR ---
PT CONT. TO SLEEP. NO C/P AT THIS TIME.
--- NOTE | 2019-10-20 02:00 | NUR ---
PT CONT TO REST WELL WITHOUT C/P
[2019-10-20 04:00] VITALS: BP 125/69
--- NOTE | 2019-10-20 04:25 | NUR ---
PT IS SLEEPING SOUNDLY. NO C/O AT THIS TIME.
--- NOTE | 2019-10-20 06:03 | NUR ---
PT IS SLEEPING WELL. RESPIRATIONS UNLABORED AND EVEN
--- NOTE | 2019-10-20 08:24 | NUR ---
RESTING IN BED, NO DISTRESS NOTED, FAMILY IN ROOM, AMDRIGAL TO GRAVITY, IV INFUSING, CONT TO MONITOR RESP STATUS
[2019-10-20 08:38] VITALS: BP 145/90
[2019-10-20 13:07] VITALS: BP 124/55
--- NOTE | 2019-10-20 15:12 | NUR ---
RETURNED TO BED, HAD BEEN UP IN CHAIR FOR LUNCH TILL NOW, C/O NAUSEA, COOL CLOTH PROVIDED, CONT TO MONITOR
[2019-10-20 16:53] VITALS: BP 155/65
--- NOTE | 2019-10-20 18:30 | NUR ---
CALL PLACED TO DR SCHULER ABOUT PT CONT TO BE THROWING UP GREENISH EMESIS, NEW ORDERS TO PLACE NG TUBE
--- NOTE | 2019-10-20 19:00 | NUR ---
NG TUBE PLACED WITH 1 TRY, ELOY WELL, CONT TO MONITOR TILL XRAYS ARE COMPLETETD
--- NOTE | 2019-10-20 19:20 | NUR ---
XRAY DONE, AWAITING RESULTS,
[2019-10-20 20:00] VITALS: BP 159/91
[2019-10-21] VITALS: BP 145/67
[2019-10-21 04:00] VITALS: BP 140/77
[2019-10-21 07:11] LABS: HEMATOCRIT 31.3 % (36.0-48.0); HEMOGLOBIN 10.1 g/dL (12-16); LYMPHOCYTES 15.1 % (15-50); MCH 26.7 pg (26.0-34.0); MCHC 32.3 g/dL (31.0-37.0); MCV 82.8 fL (80.0-100.0); MEAN PLATELET VOLUME 9.2 fL (7.4-10.4); NEUTROPHILS 73.3 % (40-80); RBC 3.78 10x6/uL (4.00-5.40); RDW 12.8 % (11.5-14.5); WBC 8.9 10x3/uL (4.8-10.8)
[2019-10-21 07:13] LABS: PLATELET COUNT 441 10x3/uL (130-400)
[2019-10-21 07:15] VITALS: BP 147/61
[2019-10-21 07:22] LABS: ANION GAP 11.8 mmol/L (8-16); CALCIUM 8.8 mg/dL (8.5-10.1); CARBON DIOXIDE 25.8 mmol/L (21.0-32.0); CREATININE - SERUM 0.9 mg/dL (0.6-1.3); POTASSIUM - SERUM 3.6 mmol/L (3.5-5.1)
--- NOTE | 2019-10-21 08:59 | NUR ---
RESTING IN BED, NO DISTRESS NOTED, NG TO LIS, DRAINAGE DARK IN COLOR, FAMILY IN ROOM, MADRIGAL TO GRAVITY, URINE YELLOW IN COLOR, ABT INFUSING AND THEN BOLUS
[2019-10-21 12:00] VITALS: BP 113/83
[2019-10-21 12:08] LABS: AMPHOTERICIN B MIC 0.5 ug/mL (())
--- NOTE | 2019-10-21 14:13 | NUR ---
BATH AND BED CHANGED DONE TODAY.
[2019-10-21 16:00] VITALS: BP 138/50
--- NOTE | 2019-10-21 18:08 | NUR ---
RESTING IN BED, NO DISTRESS NOTED, FAMILY IN ROOM, IV CONT, NG TO LIS, MADRIGAL TO GRAVITY, CONT TO MONITOR
[2019-10-21 20:00] VITALS: BP 116/61
[2019-10-22] VITALS: BP 142/70
[2019-10-22 04:00] VITALS: BP 101/62
[2019-10-22 07:17] LABS: ALBUMIN 2.9 g/dL (3.4-5.0); ANION GAP 11.5 mmol/L (8-16); BILIRUBIN - TOTAL 0.26 mg/dL (0.2-1.3); CALCIUM 8.6 mg/dL (8.5-10.1); CARBON DIOXIDE 25.9 mmol/L (21.0-32.0); CREATININE - SERUM 0.8 mg/dL (0.6-1.3); PROTEIN - SERUM 5.8 g/dL (6.4-8.2)
[2019-10-22 07:18] LABS: POTASSIUM - SERUM 4.4 mmol/L (3.5-5.1)
[2019-10-22 09:31] VITALS: BP 109/55
--- NOTE | 2019-10-22 10:37 | NUR ---
0700 BEDSIDE REPORT RECEIVED FROM OUTGOING NURSE INTRODUCED MYSELF TO PATIENT PT DENIES PAIN AT THIS TIME ASSESSMENT COMPLETE
--- NOTE | 2019-10-22 10:38 | NUR ---
0900 PTS DTR AT BEDSIDE UPDATES PROVIDED
--- NOTE | 2019-10-22 10:39 | NUR ---
7483 PT AMBULATED AROUND NURSING STATION USING WALKER WITH PHYSICAL THERAPY STAFF PRESENT TO ASSIST PT WALKED 500 FEET WITHOUT ANY DISTRESS
--- NOTE | 2019-10-22 11:40 | NUR ---
1040 SITTING UP IN RECLINER CHAIR WITHOUT COMPLAINTS
--- NOTE | 2019-10-22 13:28 | NUR ---
2860 NURSE ASSIST X 1 BACK TO BED
--- NOTE | 2019-10-22 13:28 | NUR ---
1230 RESTING QUIETLT WITH EYES CLOSED
[2019-10-22 14:02] VITALS: BP 97/66
--- NOTE | 2019-10-22 14:57 | NUR ---
1430 RETURNED FROM GASTRIC EMPTING STUDY IN RADIOLOGY DAUGHTER AT BEDSIDE
--- NOTE | 2019-10-22 16:43 | NUR ---
REFUSED BATH ON TODAY. C/L IN REACH AT BEDSIDE.
--- NOTE | 2019-10-22 17:45 | NUR ---
173 DR CONCEPCION AT [facility] WITH RESULTS OF GASTRIC EMPTING STUDY SON IS AT BEDSIDE NEW ORDER TO D/C NGT ANT START CLEAR LIQUID DIET
--- NOTE | 2019-10-22 17:46 | NUR ---
1715 CLEAR LIQUIDS SERVED ELOY WELL
[2019-10-22 18:40] VITALS: BP 123/65
[2019-10-22 20:56] VITALS: BP 141/53
[2019-10-23 00:52] VITALS: BP 121/57
[2019-10-23 04:00] VITALS: BP 133/56
--- NOTE | 2019-10-23 06:19 | NUR ---
I have reviewed this patient and I concur with the Shift Assessment completed by the Licensed Practical Nurse today this shift.
[2019-10-23 08:00] VITALS: BP 125/64
[2019-10-23 12:00] VITALS: BP 123/51
--- NOTE | 2019-10-23 13:10 | NUR ---
Rehab Note- Acute Inpatient Rehab prescreen order received. The patient has [facility] insurance and will require a PreAuth. She has a pending OT Eval that will be needed for PreAuth process. Will follow and initiate PreAuth process. Thank you for this referral! Liz Dey RN Clinical Liaison, [facility] Rehab
[2019-10-23 16:00] VITALS: BP 117/51
--- NOTE | 2019-10-23 17:46 | NUR ---
I have reviewed this patient and I concur with the Shift Assessment completed by the Licensed Practical Nurse today this shift.
[2019-10-23 20:30] VITALS: BP 136/51
[2019-10-24 00:14] VITALS: BP 123/56
[2019-10-24 06:10] VITALS: BP 132/60
--- NOTE | 2019-10-24 07:18 | NUR ---
PT IS RESTING IN BED WITH EYES CLOSED. RESPIRATIONS ARE EVEN AND UNLABORED. PT IS EASILY AROUSED WITH VERBAL STIMULATION. PT IS AAO X 4 UPON AROUSAL. PT IS VERY [place] TO BOTH EARS. MADRIGAL CATHETER NOTED AND DRAINING WITHOUT DIFFICULTY. STAT LOCK IN PLACE TO LEFT UPPER LEG. CLEAR YELLOW URINE NOTED TO MADRIGAL COLLECTION BAG. ALL FALL PRECAUTIONS IN PLACE. ABDOMINAL INCISION NOTED TO LLQ WITH SMALL AMOUNT OF DRAINAGE NOTED. UMBILICAL HERNIA NOTED. BS ACTIVE X 4. SCDS ARE ON BLE. BED IS IN THE LOWEST POSITION. CALL LIGHT AND BEDSIDE TABLE ARE WITHIN REACH. SIDE RAILS X 2. PT DENIES FURTHER NEEDS. WILL CONT TO MONITOR.
[2019-10-24 08:00] VITALS: BP 133/78
--- NOTE | 2019-10-24 08:09 | NUR ---
MADRIGAL CATHETER CLAMPED AT THIS TIME TO START BLADDER TRAINING. PT EDUCATED ON BLADDER TRAINING AND VERBALIZES UNDERSTANDING. FALL PRECAUTIONS IN PLACE. BED IN THE LOWEST POSITION. CALL LIGHT AND BEDSIDE TABLE ARE WITHIN REACH. SIDE RAILS X 2. PT DENIES FURTHER NEEDS. WILL CONT TO MONITOR.
--- NOTE | 2019-10-24 10:01 | NUR ---
MADRIGAL CATHETER UNCLAMPED. PT DENIES URGE TO VOID. CLEAR YELLOW URINE DRAINING TO MADRIGAL COLLECTION BAG WITHOUT DIFFICULTY. FALL PRECAUTIONS IN PLACE. BED IS IN THE LOWEST POSITION. CALL LIGHT AND BEDSIDE TABLE ARE WITHIN REACH. SIDE RAILS X 2. FAMILY AT BEDSIDE. PT DENIES FURTHER NEEDS. WILL CONT TO MONITOR.
--- NOTE | 2019-10-24 10:21 | NUR ---
FOELY CATHETER CLAMPED AT THIS TIME FOR BLADDER TRAINING.
[2019-10-24 12:00] VITALS: BP 118/56
--- NOTE | 2019-10-24 12:22 | NUR ---
PT DENIES URGE TO VOID. MADRIGAL CATHETER UNCLAMPED AT THIS TIME. CLEAR YELLOW URINE NOTED TO CTUBING AND FLOWING WITHOUT DIFFICULTY INTO COLLECTION BAG. FALL PRECAUTIONS IN PLACE. BED IS IN THE LOWEST POSITION. CALL LIGHT AND BEDSIDE TABLE ARE WITHIN REACH. SIDE RAILS X 2. FAMILY AT BEDSIDE. WILL CONT TO MONITOR.
--- NOTE | 2019-10-24 12:54 | NUR ---
MADRIGAL CATHETER CLAMPED FOR BLADDER TRAINING. FALL PRECAUTIONS IN PLACE. FAMILY AT BEDSIDE. WILL CONT TO MONITOR.
--- NOTE | 2019-10-24 14:12 | NUR ---
PT SITTING IN BEDSIDE CHAIR. FALL PRECAUTIONS IN PLACE. PT DENIES PRESENCE OF URGE TO VOID. WILL CONT TO BLADDER TRAIN. PT DENIES PRESENCE OF N/V/PAIN AT THIS TIME. PT DENIES FURTHER NEEDS. WILL CONT TO MONITOR.
--- NOTE | 2019-10-24 14:31 | NUR ---
Rehab Note- Received call from Krishna with [facility] stating that the medical records assistant has denied the patient an acute rehab stay that her needs can be met at a lower level of care such as a SNF. A peer to peer can be set up prior to tomorrow 10/24 @ 1500 by contacting Krishna with the MD's name, #, & a good time for peer to peer- his contact # is [phone]. Spoke with DAVIS Palacios. Thank you for this referral! Liz Dey RN Clinical Liaison, [facility] Rehab
--- NOTE | 2019-10-24 15:01 | NUR ---
PT WITHOUT URGE TO VOID. MADRIGAL CATHETER UNCLAMPED. PT IS RESTING IN BEDSIDE CHAIR. PT DENIES PRESENCE OF N/V/PAIN/DYSPNEA AT THIS TIME. FALL PRECAUTIONS IN PLACE. BEDSIDE TABLE AND CALL LIGHT WITHIN REACH. PT DENIES FURTHER NEEDS. WILL CONT TO MONITOR.
--- NOTE | 2019-10-24 15:45 | NUR ---
PT MADRIGAL CATHETER CLAMPED AT THIS TIME.
[2019-10-24 16:00] VITALS: BP 125/54
--- NOTE | 2019-10-24 17:18 | NUR ---
OT NOTE: PT COMPLETED SUPINE TO SIT WITH MIN A. PT COMPLETED ADL MOB WITH CGA. PT IS EASILY FATIGUED. PT COMPLETED EOB SITTING WITH SBA. PT COMPLETED UE AROM EXS AT EOB WITH SBA. [phone] THANK YOU,YARA CARR
--- NOTE | 2019-10-24 17:48 | NUR ---
PT DENIES URGE TO VOID. MADRIGAL CATHETER UNCLAMPED AT THIS TIME. CLEAR YELLOW URINE DRAINING TO COLLECTION BAG WITHOUT DIFFICULTY. PT SITTING IN BEDSIDE CHAIR. PT DENIES PRESENCE OF PAIN/N/V AT THIS TIME. FAMILY AT BEDSIDE. FALL PRECAUTIONS IN PLACE. BEDSIDE TABLE AND CALL LIGHT WITHIN REACH. WILL CONT TO MONITOR.
[2019-10-24 20:00] VITALS: BP 162/54
[2019-10-25] VITALS: BP 111/42
[2019-10-25 04:00] VITALS: BP 110/54
--- NOTE | 2019-10-25 07:00 | NUR ---
RECIEVED PT FROM PHARMACOLOGY TEACHER. PT IS ALERT AND ORIENTED X4. POST OP DAY 7 OF AN OPEN GASTROJEJUNOSTOMY. REPORTE TO BE [place]- HAS HEARING AIDS. PT HAS A MADRIGAL, NEED TO D/C IT TODAY? RIGHT HAND SALINE LOCKED, ROOM AIR. PT IS A POSSIBLE D/C FOR TODAY. LEFT RESTING COMFORTABLY. DENIES ANY NEEDS. BED IN LOWEST POSITION, BED RAILS X2, CALL LIGHT WITHIN REACH. WILL CONTINUE TO MONITOR.
--- NOTE | 2019-10-25 08:34 | NUR ---
Nutrition follow-up: Pts diet has advanced to regular soft; po intake poor at this time No BM charted since surgery Labs reviewed WT: 118# Will offer nutritional supplements and encourage increased po intake RDN following.
--- NOTE | 2019-10-25 10:06 | NUR ---
ADMINISTERED MORNING MEDICATION, NO DIFFICULTIES. PT IS UPRIGHT IN BED, FAMILY AT BEDSIDE. REQUESTED TO TALK TO CM CONCERNING REHAB PLACEMENT, WILL IN FORM CM. DENIES ANY NEEDS. BED IN LOWEST POSITION, BED RAILS X2, CALL LIGHT WITHIN REACH. WILL CONTINUE TO MONITOR. ASSESSMENT PERFORMED AT THIS TIME.
[2019-10-25 11:05] VITALS: BP 112/63
--- NOTE | 2019-10-25 12:17 | MORECARE ---
CASE MANAGEMENT DISCHARGE SUMMARY PATIENT: HONORIO ACEVES UNIT: [id number] ADM DATE: 10/09/19 AGE: 89 : 32 SEX: F ROOM/BED: D.2239 AUTHOR: BHAVNADOC PHYSICIAN: REFERRING PHYSICIAN: HANNAH CONCEPCION MD DATE OF SERVICE: 10/25/19 Discharge Plan Patient Name: HONORIO ACEVES Facility: [facility] : 1930 Planned Disposition: Home Anticipated Discharge Date: Discharge Date: Expected LOS: Initial Reviewer: [email or web address] Initial Review Date: 10/15/2019 Generated: 10/25/19 1:17 pm Comments DCP- Discharge Planning Updated by [id number]: Suzanne Rehman on 10/25/19 11:[address] Patient Name: HONORIO ACEVES Admission Status: Elective Accout number: [id number] Admission Date: 10-09-2019 : 1930 Admission Diagnosis:ACUTE POSTPROCEDURAL RESPIRATORY FAILURE Attending: HANNAH CONCEPCION Current LOS: 16 Anticipated DC Date: Planned Disposition: Home Primary Insurance: [facility] [employer] SOLUTIONS Discharge Planning Comments: CM met with patient at bedside after explaining CM role and obtaining verbal consent. CM discussed availability / needs of home health, REHAB and medical equipment. PATIENT WANTS TO GO TO [facility] FOR THERAPY, I RECEIVED A CALL TODAY SAYING SHE WAS DENIED BY INSURANCE FOR HER THERAPY. I SPOKE WITH HER AND HER SON AND THEY ARE TRYING TO GET THE [employer] TO APPROVE IT. I LEFT THEM A LIST OF SNF TO LOOK AT. I WILL CHECH BACK WITH THEM AFTERNOON. Hospice Fellow: Suzanne Rehman DCP- Discharge Planning Updated by [email or web address]: Dasia Chacon on 10/15/19 7:[address] Patient Name: HONORIO ACEVES Admission Status: Elective Accout number: [id number] Admission Date: 10-09-2019 : 1930 Admission Diagnosis:ACUTE POSTPROCEDURAL RESPIRATORY FAILURE Attending: HANNAH CONCEPCION Current LOS: 6 Anticipated DC Date: Planned Disposition: Home Primary Insurance: [facility] MEDIC[employer] SOLUTIONS Discharge Planning Comments: CM met with patient to complete initial dc planning assessment. CM educated patient on the CM role and verbal consent given by patient to complete assessment. Patient lives at home alone. Patient is independent. At discharge patient plans to return home and feels this is a safe discharge. CM discussed availability of home health, rehab services, and medical equipment. Patient was pretty adamant that she didn't need any HH services. Patient will have family to transport home. CM will need to see what physical therapy recommends once she is evaluated. Patient might be interested in Inpatient Rehab. CM will need to get MARY for infusion company for tube feedings. Patient denied known discharge needs at this time. CM will continue to follow and will assist as needed with dc plans/needs. Hospice Fellow: Dasia Chacon DCPIA - Discharge Planning Initial Assessment Updated by [id number]: Dasia Chacon on 10/15/19 8:27 pm * Is the patient Alert and Oriented? Yes * How many steps to enter\exit or inside your home? * PCP [place] * Pharmacy [facility] * Preadmission Environment Home Alone * ADLs Independent * Equipment Walker * List name and contact numbers for known caregivers / representatives who currently or will assist patient after discharge: HAYLEY CHAPMAN - DAUGHTER- [phone], * Verbal permission to speak to the caregivers and representatives has been obtained from the patient. Yes * Community resources currently utilized None * Additional services required to return to the preadmission environment? No * Can the patient safely return to the preadmission environment? Yes * Has this patient been hospitalized within the prior 30 days at any hospital? No Last DP export: 10/15/19 7:46 p Patient Name: HONORIO ACEVES Page [id number] at 1217 All edits/amendments must be made on the electronic document DICTATION DATE: 10/25/197 SCRUB TECHNICIAN: BEBETO 10/25/197 RPT#: [id number] DC DATE: STATUS: ADM IN [facility] [address] [place] [address] END OF REPORT
[2019-10-25 15:07] VITALS: BP 96/63
--- NOTE | 2019-10-25 16:38 | NUR ---
OT NOTE: PT COMPLETED SIT TO STAND WITH CGA. PT COMPLETED SITTING BALANCE WITH CGA. PT EXHIBITED A LATERAL LEAN TO RIGHT SIDE. PT COMPLETED UE AROM AXS. [phone] THANK YOU,YARA CARR
--- NOTE | 2019-10-25 18:40 | NUR ---
PT RESTING COMFORTABLY IN BED. DENIES ANY NEEDS. WILL CONTINUE TO MONITOR.
--- NOTE | 2019-10-25 19:18 | NUR ---
ADMINISTERED MILK OF MAGNESIA FOR CONSTIPATION. PASSED TO INVESTIGATION DIVISION CAPTAIN. DENIES ANY NEEDS.
[2019-10-25 20:00] VITALS: BP 119/55
--- NOTE | 2019-10-26 02:32 | NUR ---
BLADDER TRANING THIS SHIFT.
[2019-10-26 04:00] VITALS: BP 123/554
[2019-10-26 09:07] VITALS: BP 113/52
--- NOTE | 2019-10-26 09:58 | MORECARE ---
CASE MANAGEMENT DISCHARGE SUMMARY PATIENT: HONORIO ACEVES UNIT: [id number] ADM DATE: 10/09/19 AGE: 89 : 32 SEX: F ROOM/BED: D.2239 AUTHOR: BHAVNADOC PHYSICIAN: REFERRING PHYSICIAN: HANNAH CONCEPCION MD DATE OF SERVICE: 10/26/19 Discharge Plan Patient Name: HONORIO ACEVES Facility: [facility]:[place] : 1930 Planned Disposition: Home Anticipated Discharge Date: Discharge Date: Expected LOS: Initial Reviewer: [id number] Initial Review Date: 10/15/2019 Generated: 10/26/19 10:57 am Comments DCP- Discharge Planning Updated by [email or web address]: Suzanne Rehman on 10/25/19 11:[address] Patient Name: HONORIO ACEVES Admission Status: Elective Accout number: [id number] Admission Date: 10-09-2019 : 1930 Admission Diagnosis:ACUTE POSTPROCEDURAL RESPIRATORY FAILURE Attending: HANNAH CONCEPCION Current LOS: 16 Anticipated DC Date: Planned Disposition: Home Primary Insurance: [facility] MEDICARE SOLUTIONS Discharge Planning Comments: CM met with patient at bedside after explaining CM role and obtaining verbal consent. CM discussed availability / needs of home health, REHAB and medical equipment. PATIENT WANTS TO GO TO [facility] FOR THERAPY, I RECEIVED A CALL TODAY SAYING SHE WAS DENIED BY INSURANCE FOR HER THERAPY. I SPOKE WITH HER AND HER SON AND THEY ARE TRYING TO GET THE [employer] TO APPROVE IT. I LEFT THEM A LIST OF SNF TO LOOK AT. I WILL CHECH BACK WITH THEM AFTERNOON. Sales Engineer Account Manager: Suzanne Rehman DCP- Discharge Planning Updated by [id number]: Dasia Chacon on 10/15/19 7:[address] Patient Name: HONORIO ACEVES Admission Status: Elective Accout number: [id number] Admission Date: 10-09-2019 : 1930 Admission Diagnosis:ACUTE POSTPROCEDURAL RESPIRATORY FAILURE Attending: HANNAH CONCEPCION Current LOS: 6 Anticipated DC Date: Planned Disposition: Home Primary Insurance: [facility] MEDICARE SOLUTIONS Discharge Planning Comments: CM met with patient to complete initial dc planning assessment. CM educated patient on the CM role and verbal consent given by patient to complete assessment. Patient lives at home alone. Patient is independent. At discharge patient plans to return home and feels this is a safe discharge. CM discussed availability of home health, rehab services, and medical equipment. Patient was pretty adamant that she didn't need any HH services. Patient will have family to transport home. CM will need to see what physical therapy recommends once she is evaluated. Patient might be interested in Inpatient Rehab. CM will need to get MARY for infusion company for tube feedings. Patient denied known discharge needs at this time. CM will continue to follow and will assist as needed with dc plans/needs. Sales Engineer Account Manager: Dasia Chacon DCPIA - Discharge Planning Initial Assessment Updated by [email or web address]: Dasia Chacon on 10/15/19 8:27 pm * Is the patient Alert and Oriented? Yes * How many steps to enter\exit or inside your home? * PCP [place] * Pharmacy [facility] * Preadmission Environment Home Alone * ADLs Independent * Equipment Walker * List name and contact numbers for known caregivers / representatives who currently or will assist patient after discharge: HAYLEY CHAPMAN - DAUGHTER- [phone], * Verbal permission to speak to the caregivers and representatives has been obtained from the patient. Yes * Community resources currently utilized None * Additional services required to return to the preadmission environment? No * Can the patient safely return to the preadmission environment? Yes * Has this patient been hospitalized within the prior 30 days at any hospital? No External Providers External Provider: [facility] Next Contact Date: Service Request Date: Service Type: Resolution: Reviewer: Comments: Coverage Notice Reviewer: [id number] Florentin Rehman Notice Issued Date-Time: 10/26/2019 9:54 Notice Type: IM Discharge Notice Notice Delivered To: Family Member Relationship to Patient: Sledger Name: BRAYDON HARDY Delivery Method: HAND - Hand Delivered Maria Isabel Days: Prior Verbal Notification: Recipient Understood Notice: Yes Recipient Signature: Yes Med Rec Note Co-signed by Attending: Coverage Notice Comment: Last DP export: 10/25/19 11:17 a Patient Name: HONORIO ACEVES Page 78434 at 0958 All edits/amendments must be made on the electronic document DICTATION DATE: 10/26/19956 GENERATION TECHNICIAN: BEBETO 10/26/19956 RPT#: [id number] DC DATE: STATUS: ADM IN [facility] [address] [place] [address] END OF REPORT
--- NOTE | 2019-10-26 10:10 | MORECARE ---
CASE MANAGEMENT DISCHARGE SUMMARY PATIENT: HONORIO ACEVES UNIT: [id number] ADM DATE: 10/09/19 AGE: 89 : 32 SEX: F ROOM/BED: D.2239 AUTHOR: BHAVNA,DOC PHYSICIAN: REFERRING PHYSICIAN: HANNAH CONCEPCION MD DATE OF SERVICE: 10/26/19 Discharge Plan Patient Name: HONORIO ACEVES Facility: [facility]:[place] : 1930 Planned Disposition: Home Anticipated Discharge Date: Discharge Date: Expected LOS: Initial Reviewer: [id number] Initial Review Date: 10/15/2019 Generated: 10/26/19 11:10 am Comments DCP- Discharge Planning Updated by [id number]: Suzanne Rehman on 10/26/19 9:[address] Patient Name: HONORIO ACEVES Admission Status: Elective Accout number: [id number] Admission Date: 10-09-2019 : 1930 Admission Diagnosis:ACUTE POSTPROCEDURAL RESPIRATORY FAILURE Attending: HANNAH CONCEPCION Current LOS: 17 Anticipated DC Date: Planned Disposition: Home Primary Insurance: [facility] MEDICARE SOLUTIONS Discharge Planning Comments: I SPOKE WITH PATIENT AND HER DAUGHTER HAYLEY TODAY. WOULD BE INTERESTED IN THE [facility] FOR THERAPY IF INSURANCE WILL NOT APPROVE [facility]. HER INSURANCE WILL NOT APPROVE [facility]. MARY SIGNED FOR THE [employer]. IMM SIGNED. REFERRAL FAXED TO THE [facility] AND [facility] WILL CALL ME BACK WHEN AUTH. CM TO FOLLOW AND ASSIST NEEDED. Salesperson [employer]: Suzanne Rehman DCP- Discharge Planning Updated by [email or web address]: Suzanne Rehman on 10/25/19 11:[address] Patient Name: HONORIO ACEVES Admission Status: Elective Accout number: [id number] Admission Date: 10-09-2019 : 1930 Admission Diagnosis:ACUTE POSTPROCEDURAL RESPIRATORY FAILURE Attending: HANNAH CONCEPCION Current LOS: 16 Anticipated DC Date: Planned Disposition: Home Primary Insurance: [facility] MEDICARE SOLUTIONS Discharge Planning Comments: CM met with patient at bedside after explaining CM role and obtaining verbal consent. CM discussed availability / needs of home health, REHAB and medical equipment. PATIENT WANTS TO GO TO [facility] FOR THERAPY, I RECEIVED A CALL TODAY SAYING SHE WAS DENIED BY INSURANCE FOR HER THERAPY. I SPOKE WITH HER AND HER SON AND THEY ARE TRYING TO GET THE [employer] TO APPROVE IT. I LEFT THEM A LIST OF SNF TO LOOK AT. I WILL CHECH BACK WITH THEM AFTERNOON. Salesperson [employer]: Suzanne Rehman DCP- Discharge Planning Updated by [email or web address]: Dasia Chacon on 10/15/19 7:[address] Patient Name: HONORIO ACEVES Admission Status: Elective Accout number: [id number] Admission Date: 10-09-2019 : 1930 Admission Diagnosis:ACUTE POSTPROCEDURAL RESPIRATORY FAILURE Attending: HANNAH CONCEPCION Current LOS: 6 Anticipated DC Date: Planned Disposition: Home Primary Insurance: [facility] MEDICARE SOLUTIONS Discharge Planning Comments: CM met with patient to complete initial dc planning assessment. CM educated patient on the CM role and verbal consent given by patient to complete assessment. Patient lives at home alone. Patient is independent. At discharge patient plans to return home and feels this is a safe discharge. CM discussed availability of home health, rehab services, and medical equipment. Patient was pretty adamant that she didn't need any HH services. Patient will have family to transport home. CM will need to see what physical therapy recommends once she is evaluated. Patient might be interested in Inpatient Rehab. CM will need to get MARY for [employer] for tube feedings. Patient denied known discharge needs at this time. CM will continue to follow and will assist as needed with dc plans/needs. Salesperson [employer]: Dasia Chacon DCPIA - Discharge Planning Initial Assessment Updated by [id number]: Dasia Chacon on 10/15/19 8:27 pm * Is the patient Alert and Oriented? Yes * How many steps to enter\exit or inside your home? * PCP [place] * Pharmacy [facility] * Preadmission Environment Home Alone * ADLs Independent * Equipment Walker * List name and contact numbers for known caregivers / representatives who currently or will assist patient after discharge: HAYLEY CHAPMAN - DAUGHTER- [phone], * Verbal permission to speak to the caregivers and representatives has been obtained from the patient. Yes * Community resources currently utilized None * Additional services required to return to the preadmission environment? No * Can the patient safely return to the preadmission environment? Yes * Has this patient been hospitalized within the prior 30 days at any hospital? No Coverage Notice Reviewer: [id number] Florentin Rehman Notice Issued Date-Time: 10/26/2019 9:54 Notice Type: IM Discharge Notice Notice Delivered To: Family Member Relationship to Patient: Panelboard Operator Name: BRAYDON HARDY Delivery Method: HAND - Hand Delivered Maria Isabel Days: Prior Verbal Notification: Recipient Understood Notice: Yes Recipient Signature: Yes Med Rec Note Co-signed by Attending: Coverage Notice Comment: Reviewer: [id number] Rehman Notice Issued Date-Time: 10/26/2019 9:54 Notice Type: Patient Choice Letter Notice Delivered To: Relationship to Patient: Panelboard Operator Name: Delivery Method: HAND - Hand Delivered Maria Isabel Days: Prior Verbal Notification: Recipient Understood Notice: Yes Recipient Signature: Yes Med Rec Note Co-signed by Attending: Coverage Notice Comment: [facility] OR [facility] Last DP export: 10/26/19 8:58 a Patient Name: HONORIO ACEVES Page 65742 at 1010 All edits/amendments must be made on the electronic document DICTATION DATE: 10/26/19 1010 CNC TECHNICIAN: BEBETO 10/26/19 1010 RPT#: [id number] DC DATE: STATUS: ADM IN [facility] [address] [place] [address] END OF REPORT
[2019-10-26 14:19] VITALS: BP 102/51
--- NOTE | 2019-10-26 16:04 | NUR ---
OT NOTE: PT COMPLETED SIT TO STAND WITH CGA. PT COMPLETED ADL MOB WITH CGA. PT COMPLETED UE AROM WITH WALKER MANAGEMENT. [id number] THANK YOU,YARA CARR
--- NOTE | 2019-10-26 16:51 | MORECARE ---
CASE MANAGEMENT DISCHARGE SUMMARY PATIENT: HONORIO ACEVES UNIT: [id number] ADM DATE: 10/09/19 AGE: 89 : 32 SEX: F ROOM/BED: D.2239 AUTHOR: BHAVNA,DOC PHYSICIAN: REFERRING PHYSICIAN: HANNAH CONCEPCION MD DATE OF SERVICE: 10/26/19 Discharge Plan Patient Name: HONORIO ACEVES Facility: [facility]:[place] : 1930 Planned Disposition: Home Anticipated Discharge Date: Discharge Date: Expected LOS: Initial Reviewer: [id number] Initial Review Date: 10/15/2019 Generated: 10/26/19 5:50 pm Comments DCP- Discharge Planning Updated by [email or web address]: Suzanne Rehman on 10/26/19 9:[address] Patient Name: HONORIO ACEVES Admission Status: Elective Accout number: [id number] Admission Date: 10-09-2019 : 1930 Admission Diagnosis:ACUTE POSTPROCEDURAL RESPIRATORY FAILURE Attending: HANNAH CONCEPCION Current LOS: 17 Anticipated DC Date: Planned Disposition: Home Primary Insurance: [facility] MEDICARE SOLUTIONS Discharge Planning Comments: I SPOKE WITH PATIENT AND HER DAUGHTER HAYLEY TODAY. WOULD BE INTERESTED IN THE [facility] FOR THERAPY IF INSURANCE WILL NOT APPROVE [facility]. HER INSURANCE WILL NOT APPROVE [facility]. MARY SIGNED FOR THE [employer]. IMM SIGNED. REFERRAL FAXED TO THE [facility] AND [facility] WILL CALL ME BACK WHEN AUTH. CM TO FOLLOW AND ASSIST NEEDED. Machine Stoppage Frequency Checker: Suzanne Rehman DCP- Discharge Planning Updated by [email or web address]: Suzanne Rehman on 10/25/19 11:[address] Patient Name: HONORIO ACEVES Admission Status: Elective Accout number: [id number] Admission Date: 10-09-2019 : 1930 Admission Diagnosis:ACUTE POSTPROCEDURAL RESPIRATORY FAILURE Attending: HANNAH CONCEPCION Current LOS: 16 Anticipated DC Date: Planned Disposition: Home Primary Insurance: [facility] MEDICARE SOLUTIONS Discharge Planning Comments: CM met with patient at bedside after explaining CM role and obtaining verbal consent. CM discussed availability / needs of home health, REHAB and medical equipment. PATIENT WANTS TO GO TO [facility] FOR THERAPY, I RECEIVED A CALL TODAY SAYING SHE WAS DENIED BY INSURANCE FOR HER THERAPY. I SPOKE WITH HER AND HER SON AND THEY ARE TRYING TO GET THE [employer] TO APPROVE IT. I LEFT THEM A LIST OF SNF TO LOOK AT. I WILL CHECH BACK WITH THEM AFTERNOON. Machine Stoppage Frequency Checker: Suzanne Rehman DCP- Discharge Planning Updated by [id number]: Dasia Chacon on 10/15/19 7:[address] Patient Name: HONORIO ACEVES Admission Status: Elective Accout number: [id number] Admission Date: 10-09-2019 : 1930 Admission Diagnosis:ACUTE POSTPROCEDURAL RESPIRATORY FAILURE Attending: HANNAH CONCEPCION Current LOS: 6 Anticipated DC Date: Planned Disposition: Home Primary Insurance: [facility] MEDICARE SOLUTIONS Discharge Planning Comments: CM met with patient to complete initial dc planning assessment. CM educated patient on the CM role and verbal consent given by patient to complete assessment. Patient lives at home alone. Patient is independent. At discharge patient plans to return home and feels this is a safe discharge. CM discussed availability of home health, rehab services, and medical equipment. Patient was pretty adamant that she didn't need any HH services. Patient will have family to transport home. CM will need to see what physical therapy recommends once she is evaluated. Patient might be interested in Inpatient Rehab. CM will need to get MARY for [employer] for tube feedings. Patient denied known discharge needs at this time. CM will continue to follow and will assist as needed with dc plans/needs. Machine Stoppage Frequency Checker: Dasia Chacon DCPIA - Discharge Planning Initial Assessment Updated by [email or web address]: Dasia Chacon on 10/15/19 8:27 pm * Is the patient Alert and Oriented? Yes * How many steps to enter\exit or inside your home? * PCP [place] * Pharmacy [facility] * Preadmission Environment Home Alone * ADLs Independent * Equipment Walker * List name and contact numbers for known caregivers / representatives who currently or will assist patient after discharge: HAYLEY CHAPMAN - DAUGHTER- [phone], * Verbal permission to speak to the caregivers and representatives has been obtained from the patient. Yes * Community resources currently utilized None * Additional services required to return to the preadmission environment? No * Can the patient safely return to the preadmission environment? Yes * Has this patient been hospitalized within the prior 30 days at any hospital? No Coverage Notice Reviewer: [id number] Florentin Rehman Notice Issued Date-Time: 10/26/2019 9:54 Notice Type: IM Discharge Notice Notice Delivered To: Family Member Relationship to Patient: Professional Development Manager Name: BRAYDON HARDY Delivery Method: HAND - Hand Delivered Maria Isabel Days: Prior Verbal Notification: Recipient Understood Notice: Yes Recipient Signature: Yes Med Rec Note Co-signed by Attending: Coverage Notice Comment: Reviewer: [id number] Rehman Notice Issued Date-Time: 10/26/2019 9:54 Notice Type: Patient Choice Letter Notice Delivered To: Relationship to Patient: Professional Development Manager Name: Delivery Method: HAND - Hand Delivered Maria Iasbel Days: Prior Verbal Notification: Recipient Understood Notice: Yes Recipient Signature: Yes Med Rec Note Co-signed by Attending: Coverage Notice Comment: [facility] Last DP export: 10/26/19 9:10 a Patient Name: HONORIO ACEVES Page 24437 at 1651 All edits/amendments must be made on the electronic document DICTATION DATE: 10/26/191649 DIRECT SALES CONSULTANT: BEBETO 10/26/191649 RPT#: [id number] DC DATE: STATUS: ADM IN [facility] [address] [place] [address] END OF REPORT
[2019-10-26 17:00] VITALS: BP 110/59
[2019-10-26 20:00] VITALS: BP 129/55
--- NOTE | 2019-10-27 00:42 | NUR ---
ALERT AND ORENTED ABLE TO VOICE NEEDS AND WANT TO STAFF. 22GAGE TO RIGHT FOREARM 500ML BOLUS OF NS PER ORDER. ON ROOM AIR REFUSED SCD'S THIS SHIFT F/C IN PLACE AND PATEN WITH DARK URIN TO BAG CALL LIGHT AND WATER IN REACH
--- NOTE | 2019-10-27 05:59 | NUR ---
f/c removed at 0545 with 1050 ml of yellow urine to bag. then up to batrroom with 2 small fromed picses of stool out, with small amount of urine at the same time.
[2019-10-27 08:27] VITALS: BP 123/57
[2019-10-27 08:40] LABS: BASOPHILS 0.4 % (0-2); HEMATOCRIT 28.7 % (36.0-48.0); HEMOGLOBIN 9.2 g/dL (12-16); IMMATURE GRANULOCYTES 1.2 % (0-5); LYMPHOCYTES 18.4 % (15-50); MCH 26.7 pg (26.0-34.0); MCHC 32.1 g/dL (31.0-37.0); MCV 83.2 fL (80.0-100.0); MEAN PLATELET VOLUME 8.9 fL (7.4-10.4); MONOCYTES 6.9 % (2-11); NEUTROPHILS 72.1 % (40-80); PLATELET COUNT 402 10x3/uL (130-400); RBC 3.45 10x6/uL (4.00-5.40); RDW 13.5 % (11.5-14.5); WBC 8.4 10x3/uL (4.8-10.8)
[2019-10-27 08:52] LABS: CALC OSMOLALITY 270 mosm/kg (275-300); CALCIUM 8.3 mg/dL (8.5-10.1); CARBON DIOXIDE 30.2 mmol/L (21.0-32.0); CHLORIDE - SERUM 100 mmol/L (98-107); CREATININE - SERUM 0.7 mg/dL (0.6-1.3); GLUCOSE 130 mg/dL (74-106); SODIUM 134 mmol/L (136-145); UREA NITROGEN 14 mg/dL (7-18); eGFR NON AFRICAN AMERICAN 84 mL/min (90-120)
[2019-10-27 13:15] VITALS: BP 111/52
--- NOTE | 2019-10-27 13:45 | NUR ---
PT ASSISTED TO RESTROOM, VOIDED.
[2019-10-27 20:00] VITALS: BP 128/61
--- NOTE | 2019-10-27 20:00 | NUR ---
PATIENT RESTING IN BED WATCHING TV WITH DAUGHTER AT BEDSIDE. NO S/S OF ACUTE DISTRESS. NO C/O AT THIS TIME. PATIENT HAS A LEFT FOREARM SALINE LOC. IV IS PATENT WITHOUT REDNESS, SWELLING, OR TENDERNESS. PATIENT HAS STERI STRIPS ON LEFT SIDE FROM PAST SURGERY. PATIENT IS UP WITH ASSISTANCE TO THE BATHROOM. CALL LIGHT WITHIN REACH. WILL CONTINUE TO MONITOR.
--- NOTE | 2019-10-28 03:36 | NUR ---
I have reviewed this patient and I concur with the Shift Assessment completed by the Licensed Practical Nurse today this shift.
[2019-10-28 04:00] VITALS: BP 171/56
[2019-10-28 09:35] VITALS: BP 100/54
--- NOTE | 2019-10-28 10:21 | NUR ---
PT ALERT X 4. BREATH SOUNDS CLEAR BILAT. IV TO RIGHT FOREARM, SALINE LOCKED. PT REPORTING NO PAIN AT THIS TIME. AMBULATING WELL WITH MINIMAL ASSIST. SON IN ROOM. BED LOW, CALL LIGHT IN REACH. NO OTHER NEEDS AT THIS TIME.
[2019-10-28 12:31] VITALS: BP 124/51
[2019-10-28 16:17] VITALS: BP 113/55
--- NOTE | 2019-10-28 19:05 | NUR ---
PATIENT SITTING UP IN CHAIR WITH NO S/S OF DISTRESS. SON AT BEDSIDE. PATIENT DENIES NEEDS AT THIS TIME. CALL LIGHT WITHIN REACH. ENCOURAGED THE PATIENT TO CALL IF SHE HAS NEEDS. WILL CONTINUE TO MONITOR.
[2019-10-28 21:23] VITALS: BP 126/59
[2019-10-29 00:56] VITALS: BP 131/62
[2019-10-29 06:47] VITALS: BP 96/57
[2019-10-29 08:38] VITALS: BP 130/62
--- NOTE | 2019-10-29 08:57 | NUR ---
PT ALERT X 4. BREATH SOUNDS CLEAR BILAT. IV TO RIGHT FOREARM, SALINE LOCKED. PT REPORTING NO PAIN. UP TO CHAIR. PT EXPECTING TO GO HOME TODAY. BED LOW, CALL LIGHT IN REACH. NO OTHER NEEDS AT THIS TIME.
--- NOTE | 2019-10-29 10:27 | MORECARE ---
CASE MANAGEMENT DISCHARGE SUMMARY PATIENT: HONORIO ACEVES UNIT: [id number] ADM DATE: 10/09/19 AGE: 89 : 32 SEX: F ROOM/BED: D.2239 AUTHOR: BHAVNADOC PHYSICIAN: REFERRING PHYSICIAN: HANNAH CONCEPCION MD DATE OF SERVICE: 10/29/19 Discharge Plan Patient Name: HONORIO ACEVES Facility: [facility]:[place] : 1930 Planned Disposition: Home Anticipated Discharge Date: Discharge Date: Expected LOS: Initial Reviewer: [email or web address] Initial Review Date: 10/15/2019 Generated: 10/29/19 11:26 am Comments DCP- Discharge Planning Updated by [email or web address]: Suzanne Rehman on 10/26/19 9:[address] Patient Name: HONORIO ACEVES Admission Status: Elective Accout number: [id number] Admission Date: 10-09-2019 : 1930 Admission Diagnosis:ACUTE POSTPROCEDURAL RESPIRATORY FAILURE Attending: HANNAH CONCEPCION Current LOS: 17 Anticipated DC Date: Planned Disposition: Home Primary Insurance: [facility] MEDICARE SOLUTIONS Discharge Planning Comments: I SPOKE WITH PATIENT AND HER DAUGHTER HAYLEY TODAY. WOULD BE INTERESTED IN THE [facility] FOR THERAPY IF INSURANCE WILL NOT APPROVE [facility]. HER INSURANCE WILL NOT APPROVE [facility]. MARY SIGNED FOR THE [place]. IMM SIGNED. REFERRAL FAXED TO THE [facility] AND [facility] WILL CALL ME BACK WHEN AUTH. CM TO FOLLOW AND ASSIST NEEDED. Sports Clerk: Suzanne Rehman DCP- Discharge Planning Updated by [id number]: Suzanne Rehman on 10/25/19 11:[address] Patient Name: HONORIO ACEVES Admission Status: Elective Accout number: [id number] Admission Date: 10-09-2019 : 1930 Admission Diagnosis:ACUTE POSTPROCEDURAL RESPIRATORY FAILURE Attending: HANNAH CONCEPCION Current LOS: 16 Anticipated DC Date: Planned Disposition: Home Primary Insurance: [facility] MEDIC[facility] SOLUTIONS Discharge Planning Comments: CM met with patient at bedside after explaining CM role and obtaining verbal consent. CM discussed availability / needs of home health, REHAB and medical equipment. PATIENT WANTS TO GO TO [facility] FOR THERAPY, I RECEIVED A CALL TODAY SAYING SHE WAS DENIED BY INSURANCE FOR HER THERAPY. I SPOKE WITH HER AND HER SON AND THEY ARE TRYING TO GET THE INWP [employer] TO APPROVE IT. I LEFT THEM A LIST OF SNF TO LOOK AT. I WILL CHECH BACK WITH THEM AFTERNOON. Sports Clerk: Suzanne Rehman DCP- Discharge Planning Updated by [id number]: Dasia Chacon on 10/15/19 7:[address] Patient Name: HONORIO ACEVES Admission Status: Elective Accout number: [id number] Admission Date: 10-09-2019 : 1930 Admission Diagnosis:ACUTE POSTPROCEDURAL RESPIRATORY FAILURE Attending: HANNAH CONCEPCION Current LOS: 6 Anticipated DC Date: Planned Disposition: Home Primary Insurance: [facility] MEDIC[facility] SOLUTIONS Discharge Planning Comments: CM met with patient to complete initial dc planning assessment. CM educated patient on the CM role and verbal consent given by patient to complete assessment. Patient lives at home alone. Patient is independent. At discharge patient plans to return home and feels this is a safe discharge. CM discussed availability of home health, rehab services, and medical equipment. Patient was pretty adamant that she didn't need any HH services. Patient will have family to transport home. CM will need to see what physical therapy recommends once she is evaluated. Patient might be interested in Inpatient Rehab. CM will need to get MARY for [email or web address] for tube feedings. Patient denied known discharge needs at this time. CM will continue to follow and will assist as needed with dc plans/needs. Sports Clerk: Dasia Chacon DCPIA - Discharge Planning Initial Assessment Updated by [email or web address]: Dasia Chacon on 10/15/19 8:27 pm * Is the patient Alert and Oriented? Yes * How many steps to enter\exit or inside your home? * PCP [place] * Pharmacy [facility] * Preadmission Environment Home Alone * ADLs Independent * Equipment Walker * List name and contact numbers for known caregivers / representatives who currently or will assist patient after discharge: HAYLEY CHAPMAN - DAUGHTER- [phone], * Verbal permission to speak to the caregivers and representatives has been obtained from the patient. Yes * Community resources currently utilized None * Additional services required to return to the preadmission environment? No * Can the patient safely return to the preadmission environment? Yes * Has this patient been hospitalized within the prior 30 days at any hospital? No External Providers External Provider: [facility] Next Contact Date: Service Request Date: Service Type: Resolution: Reviewer: Comments: Coverage Notice Reviewer: [id number] Rehman Notice Issued Date-Time: 10/26/2019 9:54 Notice Type: IM Discharge Notice Notice Delivered To: Family Member Relationship to Patient: Detective Precinct Name: BRAYDON HARDY Delivery Method: HAND - Hand Delivered Maria Isabel Days: Prior Verbal Notification: Recipient Understood Notice: Yes Recipient Signature: Yes Med Rec Note Co-signed by Attending: Coverage Notice Comment: Reviewer: [id number] Rehman Notice Issued Date-Time: 10/26/2019 9:54 Notice Type: Patient Choice Letter Notice Delivered To: Relationship to Patient: Detective Precinct Name: Delivery Method: HAND - Hand Delivered Maria Isabel Days: Prior Verbal Notification: Recipient Understood Notice: Yes Recipient Signature: Yes Med Rec Note Co-signed by Attending: Coverage Notice Comment: [facility] OR [facility] Last DP export: 10/26/19 3:51 p Patient Name: HONORIO ACEVES Page 51554 at 1027 All edits/amendments must be made on the electronic document DICTATION DATE: 10/29/19 1026 SCHOOL PLANT CONSULTANT: BEBETO 10/29/19 1026 RPT#: [id number] DC DATE: STATUS: ADM IN [facility] [address] [place] [address] END OF REPORT
--- NOTE | 2019-10-29 10:47 | NUR ---
Rehab Note- Received voicemail from Irene on behalf of Mayela griffin/ [facility] that denial was overturned, Auth #[id number]. Will notify case management of authorization. Thank you for this referral! Liz Dey RN Clinical Liaison, [facility] Rehab
--- NOTE | 2019-10-29 13:40 | MORECARE ---
CASE MANAGEMENT DISCHARGE SUMMARY PATIENT: HONORIO ACEVES UNIT: [id number] ADM DATE: 10/09/19 AGE: 89 : 32 SEX: F ROOM/BED: D.2239 AUTHOR: BHAVNA,DOC PHYSICIAN: REFERRING PHYSICIAN: HANNAH CONCEPCION MD DATE OF SERVICE: 10/29/19 Discharge Plan Patient Name: HONORIO ACEVES Facility: [facility]:[place] : 1930 Planned Disposition: Home Anticipated Discharge Date: Discharge Date: Expected LOS: Initial Reviewer: [email or web address] Initial Review Date: 10/15/2019 Generated: 10/29/19 2:40 pm Comments DCP- Discharge Planning Updated by [email or web address]: Suzanne Rehman on 10/29/19 12:[address] Patient Name: HONORIO ACEVES Admission Status: Elective Accout number: [id number] Admission Date: 10-09-2019 : 1930 Admission Diagnosis:ACUTE POSTPROCEDURAL RESPIRATORY FAILURE Attending: HANNAH CONCEPCION Current LOS: 20 Anticipated DC Date: Planned Disposition: Home Primary Insurance: [facility] MEDICARE SOLUTIONS Discharge Planning Comments: PATIENT AND SON DISCUSSING IF GOING HOME WITH OR IPRH. IMM SIGNED. WAITING FOR PATIENT TO DECIDE. CM TO FOLLOW AND ASSIST NEEDED. Country Director: Suzanne Rehman DCP- Discharge Planning Updated by [email or web address]: Suzanne Rehman on 10/26/19 9:[address] Patient Name: HONORIO ACEVES Admission Status: Elective Accout number: [id number] Admission Date: 10-09-2019 : 1930 Admission Diagnosis:ACUTE POSTPROCEDURAL RESPIRATORY FAILURE Attending: HANNAH CONCEPCION Current LOS: 17 Anticipated DC Date: Planned Disposition: Home Primary Insurance: [facility] MEDICARE SOLUTIONS Discharge Planning Comments: I SPOKE WITH PATIENT AND HER DAUGHTER HAYLEY TODAY. [place] BE [place]ESTED [place] IF INSURANCE WILL NOT APPROVE IPRH. HER INSURANCE WILL NOT APPROVE I[facility]H. MARY SIGNED FOR [place]. IMM SIGNED. REFERRAL FA[facility]ED TO THE [facility] AND [facility] WILL CALL ME BACK WHEN AUTH. CM TO FOLLOW AND ASSIST NEEDED. Country Director: Suzanne Rehman DCP- Discharge Planning Updated by [id number]: Suzanne Rehman on 10/25/19 11:[address] Patient Name: HONORIO ACEVES Admission Status: Elective Accout number: [id number] Admission Date: 10-09-2019 : 1930 Admission Diagnosis:ACUTE POSTPROCEDURAL RESPIRATORY FAILURE Attending: HANNAH CONCEPCION Current LOS: 16 Anticipated DC Date: Planned Disposition: Home Primary Insurance: [facility] MEDIC[facility] SOLUTIONS Discharge Planning Comments: CM met with patient at bedside after explaining CM role and obtaining verbal consent. CM discussed availability / needs of home health, REHAB and medical equipment. [facility], I RECEIVED A CALL TODAY SAYING SHE WAS DENIED BY INSURANCE FOR HER THERAPY. I SPOKE WITH HER AND HER SON AND THEY ARE TRYING TO GET THE [employer] TO APPROVE IT. I LEFT THEM A LIST OF SNF TO LOOK AT. I WILL CHECH BACK WITH THEM AFTERNOON. Country Director: Suzanne Rehman DCP- Discharge Planning Updated by [email or web address]: Dasia Chacon on 10/15/19 7:[address] Patient Name: HONORIO ACEVES Admission Status: Elective Accout number: [id number] Admission Date: 10-09-2019 : 1930 Admission Diagnosis:ACUTE POSTPROCEDURAL RESPIRATORY FAILURE Attending: HANNAH CONCEPCION Current LOS: 6 Anticipated DC Date: Planned Disposition: Home Primary Insurance: [facility] MEDIC[facility] SOLUTIONS Discharge Planning Comments: CM met with patient to complete initial dc planning assessment. CM educated patient on the CM role and verbal consent given by patient to complete assessment. Patient lives at home alone. Patient is independent. At discharge patient plans to return home and feels this is a safe discharge. CM discussed availability of home health, rehab services, and medical equipment. Patient was pretty adamant that she didn't need any HH services. Patient will have family to transport home. CM will need to see what physical therapy recommends once she is evaluated. Patient might be interested in Inpatient Rehab. CM will need to get MARY for [employer] company for tube feedings. Patient denied known discharge needs at this time. CM will continue to follow and will assist as needed with dc plans/needs. Country Director: Dasia Chacon DCPIA - Discharge Planning Initial Assessment Updated by [id number]: Dasia Chacon on 10/15/19 8:27 pm * Is the patient Alert and Oriented? Yes * How many steps to enter\exit or inside your home? * PCP [place] * Pharmacy [facility] * Preadmission Environment Home Alone * ADLs Independent * Equipment Walker * List name and contact numbers for known caregivers / representatives who currently or will assist patient after discharge: HAYLEY CHAPMAN - DAUGHTER- [phone], * Verbal permission to speak to the caregivers and representatives has been obtained from the patient. Yes * Community resources currently utilized None * Additional services required to return to the preadmission environment? No * Can the patient safely return to the preadmission environment? Yes * Has this patient been hospitalized within the prior 30 days at any hospital? No Coverage Notice Reviewer: [id number] Rehman Notice Issued Date-Time: 10/26/2019 9:54 Notice Type: IM Discharge Notice Notice Delivered To: Family Member Relationship to Patient: Demo Coordinator Name: SEMAJ HARDY Delivery Method: HAND - Hand Delivered Maria Isabel Days: Prior Verbal Notification: Recipient Understood Notice: Yes Recipient Signature: Yes Med Rec Note Co-signed by Attending: Coverage Notice Comment: Reviewer: [id number] Rehman Notice Issued Date-Time: 10/26/2019 9:54 Notice Type: Patient Choice Letter Notice Delivered To: Relationship to Patient: Demo Coordinator Name: Delivery Method: HAND - Hand Delivered Maria Isabel Days: Prior Verbal Notification: Recipient Understood Notice: Yes Recipient Signature: Yes Med Rec Note Co-signed by Attending: Coverage Notice Comment[facility] Reviewer: MARJ Rehman Notice Issued Date-Time: 10/29/2019 10:32 Notice Type: Patient Choice Letter Notice Delivered To: Family Member Relationship to Patient: Semaj Demo Coordinator Name: HAYLEY Delivery Method: PHONE - Phone Maria Isabel Days: Prior Verbal Notification: Recipient Understood Notice: Yes Recipient Signature: Med Rec Note Co-signed by Attending: Coverage Notice Comment: AALIYAH LEVIN Reviewer: [id number] Rehman Notice Issued Date-Time: 10/29/2019 13:32 Notice Type: IM Discharge Notice Notice Delivered To: Patient Relationship to Patient: Demo Coordinator Name: Delivery Method: HAND - Hand Delivered Maria Isabel Days: Prior Verbal Notification: Recipient Understood Notice: Yes Recipient Signature: Yes Med Rec Note Co-signed by Attending: Coverage Notice Comment: Last DP export: 10/29/19 9:27 a Patient Name: HONORIO ACEVES Page [id number] at 1340 All edits/amendments must be made on the electronic document DICTATION DATE: 10/29/19 134 PROP DRAWER: BEBETO 10/29/19 1340 RPT#: [id number] DC DATE: STATUS: ADM IN [facility] [address] [place] [address] END OF REPORT
[2019-10-29 14:02] VITALS: BP 109/51
--- NOTE | 2019-10-29 15:17 | MORECARE ---
CASE MANAGEMENT DISCHARGE SUMMARY PATIENT: HONORIO ACEVES UNIT: [id number] ADM DATE: 10/09/19 AGE: 89 : 32 SEX: F ROOM/BED: D.2239 AUTHOR: BHAVNA,DOC PHYSICIAN: REFERRING PHYSICIAN: HANNAH CONCEPCION MD DATE OF SERVICE: 10/29/19 Discharge Plan Patient Name: HONORIO ACEVSE Facility: [facility]:[place] : 1930 Planned Disposition: Home Anticipated Discharge Date: Discharge Date: Expected LOS: Initial Reviewer: [id number] Initial Review Date: 10/15/2019 Generated: 10/29/19 4:16 pm Comments DCP- Discharge Planning Updated by [email or web address]: Suzanne Rehman on 10/29/19 2:[address] Patient Name: HONORIO ACEVES Admission Status: Elective Accout number: [id number] Admission Date: 10-09-2019 : 1930 Admission Diagnosis:ACUTE POSTPROCEDURAL RESPIRATORY FAILURE Attending: HANNAH CONCEPCION Current LOS: 20 Anticipated DC Date: Planned Disposition: Home Primary Insurance: [facility] MEDICARE SOLUTIONS Discharge Planning Comments: PATIENT AND SON DISCUSSING IF GOING HOME WITH HH OR [facility]. IMM SIGNED. WAITING FOR PATIENT TO DECIDE. CM TO FOLLOW AND ASSIST NEEDED. Intake Clerk: Suzanne Rehman Appended by Suzanne Rehman on 10/29/2019 15:11 CDT: THEY HAVE DECIDED ON IPRH, DARIEN NOTIFIED, WAITING ON BED. DCP- Discharge Planning Updated by [id number]: Suzanne Rehman on 10/26/19 9:[address] Patient Name: HONORIO ACEVES Admission Status: Elective Accout number: [id number] Admission Date: 10-09-2019 : 1930 Admission Diagnosis:ACUTE POSTPROCEDURAL RESPIRATORY FAILURE Attending: HANNAH CONCEPCION Current LOS: 17 Anticipated DC Date: Planned Disposition: Home Primary Insurance: [facility] [employer] SOLUTIONS Discharge Planning Comments: I SPOKE WITH PATIENT AND HER DAUGHTER HAYLEY TODAY. [place]ED [place] IF INSURANCE WILL NOT APPROVE IPRH. HER INSURANCE WILL NOT APPROVE IPRH. MARY SIGNED FOR [place]. IMM SIGNED. REFERRAL FAXED TO THE [facility] AND [facility] WILL CALL ME BACK WHEN AUTH. CM TO FOLLOW AND ASSIST NEEDED. Intake Clerk: Suzanne Rehman DCP- Discharge Planning Updated by [email or web address]: Suzanne Sherie on 10/25/19 11:[address] Patient Name: HONORIO ACEVES Admission Status: Elective Accout number: [id number] Admission Date: 10-09-2019 : 1930 Admission Diagnosis:ACUTE POSTPROCEDURAL RESPIRATORY FAILURE Attending: HANNAH CONCEPCION Current LOS: 16 Anticipated DC Date: Planned Disposition: Home Primary Insurance: [facility] [employer]UTIONS Discharge Planning Comments: CM met with patient at bedside after explaining CM role and obtaining verbal consent. CM discussed availability / needs of home health, REHAB and medical equipment. PATIENT WANTS TO GO TO [facility] FOR THERAPY, I RECEIVED A CALL TODAY SAYING SHE WAS DENIED BY INSURANCE FOR HER THERAPY. I SPOKE WITH HER AND HER SON AND THEY ARE TRYING TO GET THE [employer] TO APPROVE IT. I LEFT THEM A LIST OF SNF TO LOOK AT. I WILL CHECH BACK WITH THEM AFTERNOON. Intake Clerk: Suzanne Rehman DCP- Discharge Planning Updated by [email or web address]: Dasia Chacon on 10/15/19 7:[address] Patient Name: HONORIO ACEVES Admission Status: Elective Accout number: [id number] Admission Date: 10-09-2019 : 1930 Admission Diagnosis:ACUTE POSTPROCEDURAL RESPIRATORY FAILURE Attending: HANNAH CONCEPCION Current LOS: 6 Anticipated DC Date: Planned Disposition: Home Primary Insurance: [facility] [employer]UTIONS Discharge Planning Comments: CM met with patient to complete initial dc planning assessment. CM educated patient on the CM role and verbal consent given by patient to complete assessment. Patient lives at home alone. Patient is independent. At discharge patient plans to return home and feels this is a safe discharge. CM discussed availability of home health, rehab services, and medical equipment. Patient was pretty adamant that she didn't need any HH services. Patient will have family to transport home. CM will need to see what physical therapy recommends once she is evaluated. Patient might be interested in Inpatient Rehab. CM will need to get MARY for [employer] company for tube feedings. Patient denied known discharge needs at this time. CM will continue to follow and will assist as needed with dc plans/needs. Intake Clerk: Dasia Chacon DCPIA - Discharge Planning Initial Assessment Updated by [id number]: Dasia Chacon on 10/15/19 8:27 pm * Is the patient Alert and Oriented? Yes * How many steps to enter\exit or inside your home? * PCP [place] * [facility] * Preadmission Environment Home Alone * ADLs Independent * Equipment Walker * List name and contact numbers for known caregivers / representatives who currently or will assist patient after discharge: HAYLEY CHAPMAN - DAUGHTER- [phone], * Verbal permission to speak to the caregivers and representatives has been obtained from the patient. Yes * Community resources currently utilized None * Additional services required to return to the preadmission environment? No * Can the patient safely return to the preadmission environment? Yes * Has this patient been hospitalized within the prior 30 days at any hospital? No Coverage Notice Reviewer: [id number] Rehman Notice Issued Date-Time: 10/26/2019 9:54 Notice Type: IM Discharge Notice Notice Delivered To: Family Member Relationship to Patient: Central Supply Nurse Name: SEMAJ HARDY Delivery Method: HAND - Hand Delivered Maria Isabel Days: Prior Verbal Notification: Recipient Understood Notice: Yes Recipient Signature: Yes Med Rec Note Co-signed by Attending: Coverage Notice Comment: Reviewer: [id number] Rehman Notice Issued Date-Time: 10/26/2019 9:54 Notice Type: Patient Choice Letter Notice Delivered To: Relationship to Patient: Central Supply Nurse Name: Delivery Method: HAND - Hand Delivered Maria Isabel Days: Prior Verbal Notification: Recipient Understood Notice: Yes Recipient Signature: Yes Med Rec Note Co-signed by Attending: Coverage Notice Comment: [facility] Reviewer: MARJ Rehman Notice Issued Date-Time: 10/29/2019 10:32 Notice Type: Patient Choice Letter Notice Delivered To: Family Member Relationship to Patient: Semaj Central Supply Nurse Name: HAYLEY Delivery Method: PHONE - Phone Maria Isabel Days: Prior Verbal Notification: Recipient Understood Notice: Yes Recipient Signature: Med Rec Note Co-signed by Attending: Coverage Notice Comment: AALIYAH HAMMOND Reviewer: [id number] Rehman Notice Issued Date-Time: 10/29/2019 13:32 Notice Type: IM Discharge Notice Notice Delivered To: Patient Relationship to Patient: Central Supply Nurse Name: Delivery Method: HAND - Hand Delivered Maria Isabel Days: Prior Verbal Notification: Recipient Understood Notice: Yes Recipient Signature: Yes Med Rec Note Co-signed by Attending: Coverage Notice Comment: Last DP export: 10/29/19 12:40 p Patient Name: HONORIO ACEVES Page 51612 at 1517 All edits/amendments must be made on the electronic document DICTATION DATE: 10/29/191515 SECURITY INFRASTRUCTURE ENGINEER: BEBETO 10/29/191515 RPT#: [id number] DC DATE: STATUS: ADM IN [facility] [address] [place] [address] END OF REPORT
--- NOTE | 2019-10-29 15:33 | NUR ---
OT NOTE: PT AMBULATING HOSPITAL HALLS WITH SON; POSSIBLE DC HOME TODAY. MOHAN LOPEZ, OTR/L
[2019-10-29] MEDS ORDERED: HYDROCODON-ACE1 EAC7 PO ×2 (17:06→17:24)
--- NOTE | 2019-10-29 19:30 | NUR ---
DISCHARGE PAPERWORK SIGNED, ALL QUESTIONS ANSWERED. IV TO RIGHT FOREARM DC'D, TIP INTACT. TRANSFERRED TO REHAB VIA WHEELCHAIR.
--- NOTE | 2019-10-29 19:56 | NUR ---
PT TAKEN TO REHAB AND REFUSED TO STAY. DR. HO NOTIFIED AND OK FOR PT TO GO HOME. PT DISCHARGED.
== END 2019-10-29 19:32 | disposition home or self-care (01) | DRG 380 ==
LOC: D.OPS 11:28 → D.ICU 11:28 → D.OPS 14:00 → D.ICU 17:00 → D.OPS 18:47 → D.ICU 18:48 → D.MS 18:48
PROVIDERS: Anesthesiology; Family Medicine; Internal Medicine Pulmonary Disease; Surgery; ADMIT Surgery; ATTEND Surgery
PROC: 5A1945Z Respiratory Ventilation, 24-96 Consecutive Hours (ICD-10-PCS; 2019-10-09)
PROC: 0BH17EZ Insertion of Endotracheal Airway into Trachea, Via Natural or Artificial Opening (ICD-10-PCS; 2019-10-09)
PROC: 0DJ08ZZ Inspection of Upper Intestinal Tract, Via Natural or Artificial Opening Endoscopic (ICD-10-PCS; principal; 2019-10-09 14:00)
PROC: 0DHA0UZ Insertion of Feeding Device into Jejunum, Open Approach (ICD-10-PCS; 2019-10-16)
DX: K31.1 Adult hypertrophic pyloric stenosis (principal); J95.821 Acute postprocedural respiratory failure; J69.0 Pneumonitis due to inhalation of food and vomit; E87.1 Hypo-osmolality and hyponatremia; I10 Essential (primary) hypertension; K21.9 Gastro-esophageal reflux disease without esophagitis; D64.9 Anemia, unspecified; Z46.59 Encounter for fitting and adjustment of other gastrointestinal appliance and device; R53.81 Other malaise; K43.9 Ventral hernia without obstruction or gangrene; M19.90 Unspecified osteoarthritis, unspecified site; M85.80 Other specified disorders of bone density and structure, unspecified site; E87.6 Hypokalemia